=== PATIENT | male | born 1935 | race Caucasian/White ===

== ENCOUNTER 2019-05-10 10:06 | Outpatient (CLI) | payer MEDICARE, SELFPAY ==
--- NOTE | 2019-05-10 10:13 | CT_ITS ---
WS: [id number] CT ANGIOGRAPHY abdomen and pelvis. HISTORY: AAA TECHNIQUE: CT angiogram is performed during IV injection. Reformation images reviewed. All CT scans a [facility] use at least one of these dose optimization techniques: automated exposure co ntrol; mA and/or kV adjustment per patient size (includes targeted exams where dose is matched to cli nical indication); or iterative reconstruction. CONTRAST: Omnipaque 350; 95 mL IV. DLP: 919.81 mGycm COMPARISON: 05/14/2018 Emphysematous changes at the lung bases. Stable since the prior study. Cardiac chambers are enlarged but incompletely visualized. Small hiatal hernia. Abdominal aorta: Tortuosity and atherosclerotic changes throughout the aorta. Aneurysmal dilatation b egins several centimeters below the renal arteries. Aneurysm extends over length of 7 cm. Extensive c alcified plaque. There is a focal saccular component extending anteriorly with the mural thickening m easuring 10 mm in diameter. The lumen is widely patent to the bifurcation. Largest AP diameter of the aneurysm is at the level of the saccular dilatation measuring 3.6 cm. Similar in appearance to the p rior study. There is also calcification at the origin of the SMA and renal arteries. There is a short stent in the proximal RIGHT common iliac artery. Stent is patent. Calcified plaque through the external and femoral arteries as seen on the prior study. At lease 50% s tenosis involving the proximal LEFT superficial femoral artery. Stable moderate stenosis involving th e proximal RIGHT common and superficial femoral arteries. Visualized liver, spleen, gallbladder, adrenals and pancreas are negative for acute process. No mass is identified. No renal obstruction. Mild perinephric stranding around each kidney. Appendix is wendy l. Diverticulosis without diverticulitis in the sigmoid and descending colon. Mild enlargement the pr ostate gland. No free fluid or adenopathy. CT/CT angio abdomen pelvis [id number] IMPRESSION: 1. Moderate atherosclerosis abdominal aorta with stable aneurysm measuring 3.6 cm. 2. Moderate atherosclerosis of the SMA, iliac arteries and proximal femoral ar teries. Similar to prior studies. Most significant stenosis involving the proxi mal LEFT SFA of greater than 50%. 3. Short stent in the proximal RIGHT common iliac artery is patent.
[2019-05-10 10:35] LABS: Blood Urea Nitrogen 13 mg/dL (8-23)
[2019-05-10] MEDS: iohexol 350 mg/mL 100 mL Btl IV (10:43)
== END 2019-05-10 10:07 | disposition home or self-care (01) ==
LOC: RADWPI 10:12
PROVIDERS: Family Provider Nurse Practitioner; PCP Nurse Practitioner; Visit Provider Thoracic Surgery (Cardiothoracic Vascular Surgery)
DX: I71.4 Abdominal aortic aneurysm, without rupture (principal); I70.0 Atherosclerosis of aorta; K55.1 Chronic vascular disorders of intestine; I70.8 Atherosclerosis of other arteries
CPT/HCPCS: 74174; 82565; 84520; Q9967

== ENCOUNTER 2019-10-05 16:35 | Emergency (ER) | payer MEDICARE, SELFPAY ==
[2019-10-05 16:49] VITALS: BP 158/74; PULSE 84; RESP 12; TEMP 37.2; O2SAT 97; BMI 23.0
--- NOTE | 2019-10-05 17:08 | XRR_ITS ---
PROCEDURE INFORMATION: Exam: XR Abdomen, 1 View Exam date and time: 10/05/2019 5:14 PM Age: 84 years old Clinical indication: Abdominal pain; Additional info: Abdominal pain, transient sharp/grabbing pain TECHNIQUE: Imaging protocol: XR of the abdomen. Views: Frontal supine view of the abdomen. 1 View. Other technique: Frontal portable supine view of the abdomen/pelvis. COMPARISON: CR Abdomen Series Acute [id number] 01/19/2014 1:27 PM FINDINGS: Gastrointestinal tract: Unremarkable. No bowel dilation. Vasculature: Mild calcification of the left upper quadrant splanchnic vasculature is present. 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 Bilateral lower lumbar facet primary osteoarthritis. XR/XR KUB portable [id number] IMPRESSION: No acute abdominal or pelvic abnormality identified.
[2019-10-05 17:49] LABS: Basophils # 0.1 10^3/uL (0.0-0.1); Basophils % 0.8 %; Eosinophils # 0.1 10^3/uL (0.0-0.8); Eosinophils % 1.4 %; Hematocrit 39.5 % (42.0-52.0); Hemoglobin 12.7 g/dL (11.7-16.6); Lymphocytes # 2.2 10^3/uL (0.8-4.8); Lymphocytes % 30.8 %; Mean Corpuscular HGB Conc 32.2 g/dL (30.0-36.0); Mean Corpuscular Hemoglobin 30.5 pg (28.0-34.0); Mean Corpuscular Volume 94.7 fL (80-94); Mean Platelet Volume 10.7 fL (7.4-10.4); Monocytes # 0.8 10^3/uL (0.2-0.9); Monocytes % 11.4 %; Neutrophils # 3.9 10^3/uL (1.8-7.7); Neutrophils % 55.3 %; Nucleated Red Blood Cells % 0 %; Platelet Count 175 10^3/cmm (130-400); Red Blood Count 4.17 10^6/uL (4.1-5.3); Red Cell Distribution Width 12.6 % (12.1-15.1); White Blood Count 7.1 10^3/uL (4.0-10.0)
--- NOTE | 2019-10-05 18:00 | W.ED.ABDPA2 ---
HPI - Abdominal Pain General: Chief Complaint: Abdominal Pain Stated Complaint: abd pain Time Seen by Provider: 10/05/19 17:31 Source: patient Mode of arrival: ambulatory Limitations: no limitations History of Present Illness: HPI narrative: 84 yo male that states he has had constipation for the last 2 days. he stgates he has had diffuse cramping. He denies any pain currently. denies fevers. He states he has a hx of bowel issues in the past. he has not taken any stool softeners or laxatives. MD elicited complaint: abdominal pain Pertinent past history: constipation Onset (ago): day(s) Location: Diffuse Associated Symptoms: Reports constipation; Denies chills, dysuria and fever(s) Review of Systems Const: Denies: fever(s), chills, body aches or change in appetite Eyes: Denies: blurry vision or eye discomfort ENMT: Denies: throat pain or dental pain Card: Denies: chest pain Resp: Denies: dyspnea GI: Reports: abdominal pain and constipation : Denies: dysuria Musc: Denies: neck pain or back pain Skin/Breast: Denies: rash Neuro: Denies: headache(s) Psych: Denies: depression Hieu/Lymph: Denies: easy bruising All/Imm: Denies: urticaria PFSH ED PFSH: Medical History AAA (abdominal aortic aneurysm) Paroxysmal A-fib Surgical History S/P CABG (coronary artery bypass graft) Family History Other CAD (coronary artery disease) Social History Smoking and tobacco status: former smoker Alcohol intake: former Physical Exam Const: COMMON NORMALS: no acute distress, patient oriented x3 and healthy appearing HENMT: COMMON NORMALS: normocephalic and atraumatic HEAD & SCALP: normocephalic and atraumatic Eye: COMMON NORMALS: Equal, round and reactive pupils present and EOMs intact bilaterally PUPIL: Yes Equal, round and reactive pupils present Neck/C-Spine: COMMON NORMALS: full ROM and supple Chest: COMMONS NORMALS: normal inspection of the chest and normal palpation of entire chest wall Resp: COMMON NORMALS: normal respiratory effort, No retractions, No use of accessory muscles and clear to auscultation bilaterally AUSCULTATION: clear to auscultation bilaterally Cardio: COMMON NORMALS: regular rate, regular rhythm and No murmurs present (Cardio) RATE: regular rate RHYTHM: regular rhythm GI: COMMON NORMALS: Normal to inspection, nondistended, normoactive bowel sounds present, Soft to palpation, non-tender and no masses PALPATION: Yes Soft to palpation Extremity: COMMON NORMALS: normal to inspection and full ROM Neuro: COMMON NORMALS: patient oriented x3, moves all extremities and no focal motor deficits Psych: COMMON NORMALS: mental status grossly normal, Normal thought process present and cooperative THOUGHT PROCESS: Normal thought process present Skin: COMMON NORMALS: no rashes or lesions noted and no wounds GENERAL SKIN EXAM: no rashes or lesions noted Course Vital Signs: Vital signs: Vital Signs Temperature 98.9 F 10/05/19 16:49 Pulse Rate 70 10/05/19 18:27 Respiratory Rate 16 10/05/19 18:27 Blood Pressure 125/85 10/05/19 18:27 Pulse Oximetry 97 10/05/19 18:27 MDM - Abdominal Pain MDM Narrative: Medical decision making narrative: pt presents here with abdominal pain likely from constipation. I believe his pain is likely from his constipation. His abdominal exam here is benign and has no signs of acute surgical abdomen. Will prescribe him miralax and bentyl for home. he is to return if worsening. Lab Data: Labs: Lab Results 10/05/19 10/05/19 10/05/19 Range/Units 17:32 17:32 17:32 WBC 7.1 (4.0-10.0) 10^3/ uL RBC 4.17 (4.1-5.3) 10^6/u L Hgb 12.7 (11.7-16.6) g/dL Hct 39.5 L (42.0-52.0) % MCV 94.7 H (80-94) fL MCH 30.5 (28.0-34.0) pg MCHC 32.2 (30.0-36.0) g/dL RDW 12.6 (12.1-15.1) % Plt Count 175 (130-400) 10^3/c mm MPV 10.7 H (7.4-10.4) fL Neut % (Auto) 55.3 % Lymph % (Auto) 30.8 % [place] % (Auto) 11.4 % Eos % (Auto) 1.4 % Baso % (Auto) 0.8 % Neut # (Auto) 3.9 (1.8-7.7) 10^3/u L Lymph # (Auto) 2.2 (0.8-4.8) 10^3/u L [place] # (Auto) 0.8 (0.2-0.9) 10^3/u L Eos # (Auto) 0.1 (0.0-0.8) 10^3/u L Baso # (Auto) 0.1 (0.0-0.1) 10^3/u L Nucleated RBC % (a uto) 0 % Nucleated RBCs # 0.0 /100WBC Sodium 139 (136-145) mmol/L Potassium 3.8 (3.5-5.1) mmol/L Chloride 101 (98-107) mmol/L Carbon Dioxide 26 (22-29) mmol/L Anion Gap 15.8 (5-19) BUN 12 (8-23) mg/dL Creatinine 1.1 (0.7-1.2) mg/dL Glucose 96 (65-115) mg/dL Calculated Osmolal ity 284 L (285-295) mOsm/k g Lactate 0.9 (0.5-2.2) mmol/L Calcium 10.0 (8.5-10.5) mg/dL Total Bilirubin 0.6 (0.15-1.2) mg/dL AST 19 (0-40) U/L ALT 13 (0-41) U/L Alkaline Phosphata se 47 (40-130) IU/L Total Protein 7.3 (6.6-8.7) g/dL Albumin 4.4 (3.5-5.2) g/dL Globulin 2.9 (1.3-4.6) g/dL Lipase 23 (13-60) U/L Discharge Plan Discharge Patient Disposition: Home, Self-Care Clinical Impression: Abdominal pain Constipation Qualifiers: Constipation type: unspecified constipation type Qualified Code(s): K59.00 - Constipation, unspecified Condition: Stable Prescriptions: New dicyclomine 20 mg tablet 20 mg PO BID PRN (Reason: abdominal pain) Qty: 20 RF: 0 Miralax 17 gram/dose powder 17 gm PO DAILY PRN (Reason: constipation) Qty: 119 RF: 0 No Action metoprolol tartrate 50 mg tablet 50 mg PO BID RF: 0 up4 Probiotics Adult 15 billion cell capsule 1 cap PO DAILY RF: 0 pantoprazole [Protonix] 40 mg tablet,delayed release (DR/EC) 40 mg PO DAILY RF: 0 lisinopril 2.5 mg tablet 1.25 mg PO BID RF: 0 cholecalciferol (vitamin D3) 125 mcg (5,000 unit) capsule 5,000 unit PO DAILY RF: 0 aspirin 325 mg tablet 325 mg PO DAILY Qty: 90 RF: 3 Discharge Orders: Discharge Order (Routine); Ordered 10/05/19 Ordered By: Dandy Oliveira Referrals: Clarence Garcia, [employer] [Primary Care Provider] - 4-7 days Discharge Diet: Advance as tolerated Discharge Activity: Resume usual activity Patient Instructions: Constipation (ED), Abdominal Pain (ED) Discharge Date/Time: 10/05/19 18:28 Coding Level of Care Code 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
[2019-10-05 18:07] LABS: Lactate (Lactic Acid level) 0.9 mmol/L (0.5-2.2)
[2019-10-05 18:11] LABS: Alanine Aminotransferase 13 U/L (0-41); Albumin Level 4.4 g/dL (3.5-5.2); Alkaline Phosphatase 47 IU/L (40-130); Anion Gap 15.8 (5-19); Aspartate Amino Transferase 19 U/L (0-40); Blood Urea Nitrogen 12 mg/dL (8-23); Carbon Dioxide 26 mmol/L (22-29); Chloride 101 mmol/L (98-107); Globulin 2.9 g/dL (1.3-4.6); Glucose 96 mg/dL (65-115); Lipase 23 U/L (13-60); Osmolality Calculated 284 mOsm/kg (285-295); Potassium 3.8 mmol/L (3.5-5.1); Sodium 139 mmol/L (136-145); Total Bilirubin 0.6 mg/dL (0.15-1.2); Total Protein 7.3 g/dL (6.6-8.7)
[2019-10-05 18:27] VITALS: BP 125/85; PULSE 70; RESP 16; O2SAT 97
== END 2019-10-05 18:28 | disposition home or self-care (01) ==
PROVIDERS: Family Medicine; Emergency Provider Emergency Medicine; PCP Nurse Practitioner
DX: K59.00 Constipation, unspecified (principal); Z79.82 Long term (current) use of aspirin; I48.0 Paroxysmal atrial fibrillation; Z95.1 Presence of aortocoronary bypass graft; Z87.891 Personal history of nicotine dependence
CPT/HCPCS: 12345; 36415; 74018; 80053; 83605; 83690; 85025; 99281; 99283

== ENCOUNTER 2019-11-19 09:39 | Outpatient (CLI) | payer MEDICARE, SELFPAY ==
--- NOTE | 2019-11-19 10:15 | USCV_ITS ---
Nettles Hay Age: 84 Gender: M : 1935 Exam Date: 11/19/2019 09:44 Ordering Phys: Dominic Adler MD (Andy) ([facility] [place] Technologist: Layla Puri [place] [facility] [place]ication: CAROTID STENOSIS Risk Factors: EX Smoker Previous Vascular Surgery: R CEA Right Brachial BP: / Left Brachial BP: / Right Left Velocity (cm/s) Spectral Plaque Velocity (cm/s) Spectral Plaque Syst/Diast Broadening Syst/Diast Broadening 152.40/20.90 Prox CCA 113.40/ 13.50 110.30/21.80 Mid CCA 101.90/ 13.50 113.60/20.90 Distal CCA 102.50/ 18.70 110.30/22.10 Prox ICA 210.00/ 40.70 147.20/34.20 Mid ICA 138.65/ 36.45 155.40/45.10 Distal ICA 110.70/ 29.20 105.80 ECA 134.40 1.41 ICA/CCA 2.06 Antegrade Vertebral Antegrade 33.30/ 6.80 cm/s 28.00/ 8.50 cm/s Bi Subclavian Bi 90.50 217.1 0 CONCLUSIONS Right ICA stenosis <50%. Right CEA Left ICA stenosis 50-69% at the upper end of the range.. This is progressed since 2019 Moderate atheromatous plaque left carotid bulb/ICA. Normal antegrade Doppler flow noted in the right vertebral artery. Normal antegrade Doppler flow noted in the left vertebral artery. Oswaldo Talbert MD (Electronically Signed) Final Date: 19 November 2019 14:34 S
== END 2019-11-19 09:40 | disposition home or self-care (01) ==
LOC: US 09:40
PROVIDERS: PCP Nurse Practitioner; Visit Provider Thoracic Surgery (Cardiothoracic Vascular Surgery)
DX: I65.23 Occlusion and stenosis of bilateral carotid arteries (principal); I67.2 Cerebral atherosclerosis
CPT/HCPCS: 93880

== ENCOUNTER 2019-12-31 13:17 | Outpatient (CLI) | payer MEDICARE, SELFPAY ==
[2019-12-31 13:44] LABS: Blood Urea Nitrogen 14 mg/dL (8-23)
[2019-12-31] MEDS: iohexol 350 mg/mL 100 mL Btl IV (13:52)
--- NOTE | 2019-12-31 14:00 | CT_ITS ---
WS: [id number] CT ANGIOGRAM CAROTID ARTERIES HISTORY: carotid stenosis TECHNIQUE: CT angiogram is performed of the carotid arteries. During arterial injection imaging is ob tained from the skull base to the aortic arch in 1.25 mm imaging. Coronal and sagittal reformats are submitted, MIP imaging also reviewed. Additional multiplanar reformats of the carotid arteries are link bmitted. NASCET criteria utilized. All CT scans at [facility] use at least one of these d ose optimization techniques: automated exposure control; mA and/or kV adjustment per patient size (in cludes targeted exams where dose is matched to clinical indication); or iterative reconstruction. CONTRAST: Omnipaque 350; 95 mL IV. DLP: 1044.6 mGycm COMPARISON: 08/04/2017, carotid ultrasound 11/19/2019 Right carotid: Common carotid artery: Arises normally from the innominate. Scattered calcified plaque in the innomin ate and common carotid artery. No significant stenosis. Internal carotid artery: Mild circumferential intimal thickening and a few scattered calcified plaque s. No significant stenosis or progression since the prior study. Stenosis less than 50%. External carotid artery: Patent. Left carotid: Common carotid artery: Arises near the base of the innominate. Scattered calcified plaque in the comm on carotid artery. No significant stenosis in the common carotid artery. Internal carotid artery: Large amount of calcified plaque at the bifurcation. Stenosis calculated at 49%. Stenosis visually appears slightly greater than 49%. External carotid artery: Patent. Right vertebral artery: Small caliber. Nonvisualization of the transforaminal portion of the RIGHT fr om near the origin of the C3. Left vertebral artery: Calcified plaque at the origin of the LEFT vertebral artery the high-grade fanny nosis. Additional scattered plaque in the proximal vertebral artery. Similar to the prior study. Subclavian arteries: Moderate amount of calcified plaque bilaterally in the subclavian arteries. No h igh-grade stenosis. Upper thorax: Emphysematous changes. No nodules. Thyroid gland: Normal. Osseous structures: Severe degenerative changes at C5, C6 and C7. Disc space narrowing. Partial fusio n at the C5-6 disc space. 2 to 3 mm anterolisthesis of C3 and C4. Similar appearance to the prior marcela dy. CT/CT angio neck [id number] IMPRESSION: 1. LEFT proximal ICA stenosis calculated at 49%. Visually the stenosis appears slightly greater in 49%. Still less than 70%. 2. Less than 50% stenosis RIGHT ICA. No change. 3. No significant stenosis identified today in the proximal cervical LEFT comm on carotid artery as described on the prior study. There is intimal thickening and a few scattered calcified plaques but stenosis less than 50%.
== END 2019-12-31 13:18 | disposition home or self-care (01) ==
LOC: RADWPI 13:20
PROVIDERS: Family Provider Nurse Practitioner; PCP Nurse Practitioner; Visit Provider Thoracic Surgery (Cardiothoracic Vascular Surgery)
DX: I65.23 Occlusion and stenosis of bilateral carotid arteries (principal)
CPT/HCPCS: 70498; 82565; 84520; Q9967

== ENCOUNTER → 2020-01-05 13:27 | Outpatient (BNVA) | payer MEDICARE, SELFPAY | PROVIDERS: Family Provider Nurse Practitioner; PCP Nurse Practitioner; Referring Provider Dermatology; Visit Provider Dermatology | DX: L82.1 Other seborrheic keratosis (principal); L57.0 Actinic keratosis; D69.2 Other nonthrombocytopenic purpura; L81.4 Other melanin hyperpigmentation | CPT/HCPCS: 17000; 17003; 99203; 99204 ==

== ENCOUNTER 2020-06-08 10:35 | Outpatient (CLI) | payer MEDICARE, SELFPAY ==
--- NOTE | 2020-06-08 11:00 | USCV_ITS ---
Nettles Hay Age: 85 Gender: M : 1935 Exam Date: 06/08/2020 11:04 Ordering Phys: Dominic Adler MD (Andy) ([email or web address]) Technologist: Scottie Christiansen [place] [facility] [place]: AAA HISTORY: Diameter (cm) AP x Transverse x Length Velocity (cm/s) Waveform Prox Aorta: 2.37 x 2.64 x 28.10 Mid Aorta: 4.06 x 3.31 x 19.10 Distal Aorta: 2.54 x 2.81 x 29.00 Right Iliac Prox: 0.67 x 0.96 x 77.70 Left Iliac Prox: 0.44 x 0.78 x 126.40 Stent Prox Landing x x Aneurysmal Sac Max x x Lt Lat Sac Dim Rt Lat Sac Dim Stent Dist Landing x x Right Iliac Stent x x Left Iliac Stent x x Right Renal Art Left Renal Art FINDINGS: Comparison:. 03/27/18. The abdominal aortic aneurysm involves the infrarenal aorta. Maximum diameter of 4.1 cm. Mild circumferential plaque. There is no evidence of a right common iliac artery aneurysm. There is no evidence of a left common iliac artery aneurysm. CONCLUSIONS Stable infrarenal AAA of 4.[address] Loly Todd DO (Electronically Signed) Final Date: 08 June 2020 13:21 S
--- NOTE | 2020-06-08 11:45 | USCV_ITS ---
Nettles Hay Age: 85 Gender: M : 1935 Exam Date: 06/08/2020 11:20 Ordering Phys: Dominic Adler MD (Andy) ([facility] [place]) Technologist: Scottie Christiansen Exam Location: [facility] [place] Indication: STENOSIS Risk Factors: Previous Vascular Surgery: Right Brachial BP: / Left Brachial BP: / Right Left Velocity (cm/s) Spectral Plaque Velocity (cm/s) Spectral Plaque Syst/Diast Broadening Syst/Diast Broadening 139.50/20.60 Prox CCA 104.00/ 22.50 118.30/26.30 Mid CCA 116.50/ 23.30 109.10/13.10 Distal CCA 109.10/ 23.70 103.40/26.50 Prox ICA 188.00/ 41.90 119.60/36.00 Mid ICA 146.00/ 32.60 145.10/34.80 Distal ICA 111.90/ 46.60 121.30 ECA 164.30 1.23 ICA/CCA 1.61 Antegrade Vertebral Antegrade 51.90/ 9.90 cm/s 28.30/ 10.50 cm/s Tri Subclavian Bi 103.3 145.5 0 0 FINDINGS Comparison:. 11/19/19. Diffuse bilateral scattered calcified plaque and intimal thickening throughout the common carotid arteries and extending through the bifurcation. Greater plaque on the left. Mild elevation of ICA velocities, left ICA velocity not as elevated as compared to the prior exam. Bilateral antegrade vertebral arteries. CONCLUSIONS Left ICA stenosis 50-69%. Right ICA stenosis < 50%. No interval adverse change in stenosis since prior exam. Dr. Loly Todd DO (Electronically Signed) Final Date: 08 June 2020 13:15 S
== END 2020-06-08 10:36 | disposition home or self-care (01) ==
LOC: RAD 10:36
PROVIDERS: PCP Nurse Practitioner; Visit Provider Thoracic Surgery (Cardiothoracic Vascular Surgery)
DX: I71.4 Abdominal aortic aneurysm, without rupture (principal); I65.23 Occlusion and stenosis of bilateral carotid arteries
CPT/HCPCS: 76706; 93880

== ENCOUNTER → 2020-08-23 09:17 | Outpatient (BNVA) | payer MEDICARE, SELFPAY | PROVIDERS: PCP Nurse Practitioner; Visit Provider Nurse Practitioner | DX: I48.0 Paroxysmal atrial fibrillation (principal); N41.0 Acute prostatitis | CPT/HCPCS: 80053; 81000; 84443; 85025 ==

== ENCOUNTER 2020-11-20 13:53 | Outpatient (CLI) | payer MEDICARE, SELFPAY ==
--- NOTE | 2020-11-20 14:15 | USCV_ITS ---
Hay Nettles Age: 85 Gender: M : 1935 Exam Date: 11/20/2020 14:11 Ordering Phys: Jennifer Mcdonough Technologist: Mojgan Cesar Exam Location: [facility] – [place], [place] Indication: ventricular tachycardia BP: 119 / 59 HR: 70 Rhythm: Sinus Technical Quality: Adequate MEASUREMENTS (Male / Female) Normal Values 2D ECHO LV Diastolic Diameter PLAX 4.2 cm 4.2 - 5.9 / 3.9 - 5.3 cm LV Systolic Diameter PLAX 1.7 cm IVS Diastolic Thickness 1.3 cm 0.6 - 1.0 / 0.6 - 0.9 cm IVS Systolic Thickness 1.7 cm LVPW Diastolic Thickness 0.9 cm 0.6 - 1.0 / 0.6 - 0.9 cm LVPW Systolic Thickness 1.8 cm LVOT Diameter 2.0 cm LV Ejection Fraction 2D Teich 88.9 % LV Ejection Fraction MOD 2C 63.4 % LV Ejection Fraction 2C AL 62.5 % LA Diameter 4.0 cm LA Width 3.9 cm LA Height 5.3 cm RA Width 3.8 cm RA Height 5.9 cm Aorta at Sinotubular Diameter 3.0 cm DOPPLER AV Peak Velocity 221.0 cm/s LVOT Peak Velocity 104.0 cm/s AV Area Cont Eq vti 1.5 cm squared AV Area Cont Eq pk 1.5 cm squared MV Peak Velocity 162.0 cm/s MV Area PHT 4.2 cm squared Mitral E to A Ratio 9.6 MV E' Velocity 67.0 cm/s Mitral E to MV E' Ratio 16.3 Mitral E to LV E' Lateral Ratio 16.3 Mitral E to LV E' Septal Ratio 16.5 TR Peak Velocity 277.5 cm/s TR Peak Gradient 30.8 mmHg Right Atrial Pressure 3.0 mmHg Pulmonary Artery Systolic Pressu 33.8 mmHg PV Peak Velocity 84.0 cm/s RV Acceleration Time 0.1 s RV Ejection Time 0.3 s RV AcT/ET 0.2 FINDINGS Left Ventricle Normal left ventricular cavity size. Normal left ventricular wall thickness. Normal left ventricular systolic function. Left ventricular ejection fraction is estimated at 60-65 %. Rhythm precludes evaluation of diastolic function. Right Ventricle Normal right ventricular size. Mildly decreased right ventricular systolic function. Right ventricular systolic pressure 38 mmHg. Right Atrium Mildly increased right atrial size. Left Atrium Mildly increased left atrial size. Mitral Valve Moderate mitral annular calcification. Mildly thickened mitral valve. No mitral valve stenosis. Mild to moderate eccentric anteriorly directed mitral valve regurgitation. Aortic Valve Moderately thickened and calcified aortic valve. Mild aortic valve stenosis, mean gradient 9.4 mmHg, YECENIA 1.5 cm squared. Trace aortic valve regurgitation. Tricuspid Valve Structurally normal tricuspid valve. Trace to mild tricuspid valve regurgitation. Pulmonic Valve Structurally normal pulmonic valve. No pulmonary valve stenosis. Trace pulmonary valve regurgitation. Pericardium No pericardial effusion. Aorta Normal size aortic root and proximal ascending aorta. Normal- sized inferior vena cava with normal respiratory variation. CONCLUSIONS 1. Normal left ventricular cavity size. Normal left ventricular wall thickness. Normal left ventricular systolic function. Left ventricular ejection fraction is estimated at 60-65 %. 2. Normal right ventricular size. Mildly decreased right ventricular systolic function. 3. Mild pulmonary hypertension with pulmonary artery pressure estimated at 38 mmHg. 4. Mild biatrial enlargement. 5. Mild to moderate eccentric anteriorly directed mitral valve regurgitation. 6. Mild aortic valve stenosis, mean gradient 9.4 mmHg, YECENIA 1.5 cm squared. Trace aortic valve regurgitation. 7. When compared to previous echocardiogram dated 05/29/2018, there is mitral valve regurgitation now. Right ventricular systolic function seems to have mildly decreased as well. Kari Gonzalez MD (Electronically Signed) Final Date: 22 November 2020 16:51 S
== END 2020-11-20 13:54 | disposition home or self-care (01) ==
LOC: US 13:55
PROVIDERS: PCP Nurse Practitioner; Visit Provider Nurse Practitioner Family
DX: I47.2 Ventricular tachycardia (principal); I27.20 Pulmonary hypertension, unspecified; I35.0 Nonrheumatic aortic (valve) stenosis
CPT/HCPCS: 93306

== ENCOUNTER 2020-12-18 09:37 | Outpatient (CLI) | payer MEDICARE, SELFPAY ==
--- NOTE | 2020-12-18 10:15 | USCV_ITS ---
NettlesHay hicks Age: 85 Gender: M : 1935 Exam Date: 12/18/2020 10:35 Ordering Phys: Dominic Adler MD (Andy) ([facility] [place] Technologist: JOHN Exam Location: [facility] [place] Indication: STENOSIS Risk Factors: Previous Vascular Surgery: Right Brachial BP: / Left Brachial BP: / Right Left Velocity (cm/s) Spectral Plaque Velocity (cm/s) Spectral Plaque Syst/Diast Broadening Syst/Diast Broadening 146.90/22.00 Prox CCA 96.90 / 16.60 106.90/19.80 Mid CCA 83.10 / 15.50 98.10/ 15.40 Distal CCA 74.60 / 15.50 87.10/ 18.70 Prox ICA 217.70/ 36.00 152.50/39.40 Mid ICA 100.50/ 37.90 160.40/42.10 Distal ICA 93.50 / 30.05 81.60 ECA 153.80 1.43 ICA/CCA 1.21 Antegrade Vertebral Antegrade 15.80/ 6.10 cm/s 36.60/ 14.50 cm/s Tri Subclavian Bi 130.1 129.7 0 0 FINDINGS Comparison:. 06/08/20 Diffuse bilateral scattered calcified plaque and intimal thickening throughout the common carotid arteries and extending through the bifurcation. Tortuous arteries with no progression of disease. Antegrade vertebral arteries. No progression of stenosis or plaque. CONCLUSIONS Left ICA stenosis 50-69%. Based on velocity the stenosis is closer to 50%. Right ICA stenosis < 50%. No interval change in stenosis since prior exam. Dr. Loly Todd DO (Electronically Signed) Final Date: 18 December 2020 11:15 S
--- NOTE | 2020-12-18 11:00 | USCV_ITS ---
Hay Nettles Age: 85 Gender: M : 1935 Exam Date: 12/18/2020 10:20 Ordering Phys: Dominic Adler MD (Andy) ([facility] [place] Technologist: Scottie Christiansen Exam Location: [facility] [place] Indication: AAA HISTORY: Diameter (cm) AP x Transverse x Length Velocity (cm/s) Waveform Prox Aorta: 1.94 x 2.49 x 29.80 Mid Aorta: 4.08 x 3.30 x 21.20 Distal Aorta: 2.54 x 2.46 x 27.10 Right Iliac Prox: 0.80 x 1.11 x 72.80 Left Iliac Prox: 0.85 x 0.97 x 255.90 Stent Prox Landing x x Aneurysmal Sac Max x x Lt Lat Sac Dim Rt Lat Sac Dim Stent Dist Landing x x Right Iliac Stent x x Left Iliac Stent x x Right Renal Art Left Renal Art FINDINGS: Comparison:. 06/08/20 Stable 4.1cm infrarenal AAA with eccentric thrombus. There is no evidence of a right common iliac artery aneurysm. There is no evidence of a left common iliac artery aneurysm. CONCLUSIONS Stable AAA, 4.[address] Loly Todd DO (Electronically Signed) Final Date: 18 December 2020 11:11 S
== END 2020-12-18 09:38 | disposition home or self-care (01) ==
LOC: US 09:38
PROVIDERS: PCP Nurse Practitioner; Visit Provider Thoracic Surgery (Cardiothoracic Vascular Surgery)
DX: I65.23 Occlusion and stenosis of bilateral carotid arteries (principal); I71.4 Abdominal aortic aneurysm, without rupture
CPT/HCPCS: 93880; 93978

== ENCOUNTER 2021-06-12 21:08 | Inpatient (IN) | payer MEDICARE, SELFPAY ==
--- NOTE | 2021-06-12 21:09 | ECG_ITS ---
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 [id number]
--- NOTE | 2021-06-12 21:09 | XRR_ITS ---
PROCEDURE INFORMATION: Exam: XR Chest Exam date and time: 06/12/2021 9:09 PM Age: 86 years old Clinical indication: Chest pressure; Prior surgery; Surgery type: Cabg; Patient HX: C/O chest pain. ; Additional info: Cp TECHNIQUE: Imaging protocol: XR of the chest. Views: 1 view. COMPARISON: CT chest w con* [id number] 04/30/2018 1:36 PM FINDINGS: Lungs: Calcified granuloma in the left lung base. The lungs are otherwise clear. Pleural spaces: Unremarkable. No pleural effusion. No pneumothorax. Heart/Mediastinum: Mild cardiomegaly. Bones/joints: Sternotomy wires. [place] in the left humerus. Old left lateral rib fractures. XR/XR chest 1V portable [id number] IMPRESSION: No acute findings.
--- NOTE | 2021-06-12 21:13 | ED_ITS ---
HPI - Chest Pain General: Chief Complaint: Chest Pain Stated Complaint: cp Time Seen by Provider: 06/12/21 21:09 Source: patient and EMS Mode of arrival: EMS Limitations: no limitations History of Present Illness: 86-year-old male does have a history of coronary artery disease states he been having intermittent chest pain throughout the day today. States that nitroglycerin relieves his pain today it was not. Hemostasis nitro was out of date given nitro and is currently pain-free and states pain is a pressure type pain center of his chest he has had roughly 3 episodes denies any nausea or dyspnea. Associated symptoms: Deny abdominal pain, dyspnea, fever(s), nausea or vomiting Review of Systems Const: Denies: fever(s), chills, body aches or change in appetite Eyes: Denies: blurry vision or eye discomfort ENMT: Denies: throat pain or dental pain Card: Reports: chest pain Resp: Denies: dyspnea GI: Denies: abdominal pain, nausea, vomiting or diarrhea : Denies: dysuria Musc: Denies: neck pain or back pain Skin/Breast: Denies: rash Neuro: Denies: headache(s) Psych: Denies: depression Hieu/Lymph: Denies: easy bruising All/Imm: Denies: urticaria PFSH ED PFSH: Medical History AAA (abdominal aortic aneurysm) Arteriosclerotic heart disease (ASHD) Carotid stenosis Paroxysmal A-fib Surgical History History of right-sided carotid endarterectomy S/P CABG (coronary artery bypass graft) S/P cataract surgery Family History Other CAD (coronary artery disease) Social History Smoking and tobacco status: former smoker Second hand smoke exposure: No Smoking risk assessment/counseling performed?: No Alcohol intake: former Desire information about alcohol rehabilitation?: No Counseling given: No Desire information about substance/drug rehabilitation?: No Counseling given: No Adopted: No Caregiver/support person: No Lives independently: Yes Household members: spouse Housing: House Marital status: Current occupational status: retired History of recent travel: No Current gender identity: Male Physical Exam Const: COMMON NORMALS: no acute distress, patient oriented x3 and healthy appearing HENMT: COMMON NORMALS: normocephalic and atraumatic HEAD & SCALP: normocephalic and atraumatic Eye: COMMON NORMALS: Equal, round and reactive pupils present and EOMs intact bilaterally PUPIL: Yes Equal, round and reactive pupils present Neck/C-Spine: COMMON NORMALS: full ROM and supple Chest: COMMONS NORMALS: normal inspection of the chest and normal palpation of entire chest wall Resp: COMMON NORMALS: normal respiratory effort, No retractions, No use of accessory muscles and clear to auscultation bilaterally AUSCULTATION: clear to auscultation bilaterally Cardio: COMMON NORMALS: regular rate, regular rhythm and No murmurs present (Cardio) RATE: regular rate RHYTHM: regular rhythm GI: COMMON NORMALS: Normal to inspection, nondistended, normoactive bowel sounds present, Soft to palpation, non-tender and no masses PALPATION: Yes Soft to palpation Extremity: COMMON NORMALS: normal to inspection and full ROM Neuro: COMMON NORMALS: patient oriented x3, moves all extremities and no focal motor deficits Psych: COMMON NORMALS: mental status grossly normal, Normal thought process present and cooperative THOUGHT PROCESS: Normal thought process present Skin: COMMON NORMALS: no rashes or lesions noted and no wounds GENERAL SKIN EXAM: no rashes or lesions noted Course Vital Signs: Vital signs: Vital Signs Temperature 97.7 F 06/12/21 21:15 Pulse Rate 76 06/12/21 23:13 Respiratory Rate 14 06/12/21 23:13 Blood Pressure 128/58 06/12/21 23:13 Pulse Oximetry 96 06/12/21 23:13 MDM - Chest Pain Medical Decision Making Patient presents here with chest pain that since resolved since being here 2- hour troponin did have a delta of 7 be consistent with an NSTEMI spoke to hospitalist and will admit gave Jessyx we will consult cardiology as well Lab Data : 06/12/21 21:31 06/12/21 21:31 Radiology Impressions Chest X-Ray 06/12/21 21:09 IMPRESSION: No acute findings. Laboratory Results WBC 9.8 10^3/uL (4.0-10.0) 06/12/21 21:31 RBC 4.32 10^6/uL (4.1-5.3) 06/12/21 21: Hgb 13.2 g/dL (11.7-16.6) 06/12/21 21: Hct 40.8 % (42.0-52.0) L 06/12/21 21: MCV 94.4 fl (80-94) H 06/12/21 21: MCH 30.6 pg (28.0-34.0) 06/12/21 21: MCHC 32.4 g/dL (30.0-36.0) 06/12/21 21: RDW 13.2 % (12.1-15.1) 06/12/21 21: Plt Count 154 10^3/cmm (130-400) 06/12/21 21: MPV 10.4 fL (7.4-10.4) 06/12/21 21: Neut % (Auto) 72.2 % 06/12/21 21: Lymph % (Auto) 15.7 % 06/12/21 21: Ray % (Auto) 9.8 % 06/12/21 21: Eos % (Auto) 1.2 % 06/12/21 21: Baso % (Auto) 0.9 % 06/12/21 21: Neut # (Auto) 7.11 10^3/uL (1.8-7.7) 06/12/21 21: Lymph # (Auto) 1.5 10^3/uL (0.8-4.8) 06/12/21 21: Ray # (Auto) 1.0 10^3/uL (0.2-0.9) H 06/12/21 21: Eos # (Auto) 0.1 10^3/uL (0.0-0.8) 06/12/21 21: Baso # (Auto) 0.1 10^3/uL (0.0-0.1) 06/12/21 21: Nucleated RBC % (auto) 0 % 06/12/21: Nucleated RBCs # 0.0 /100WBC 06/12/21 21: Sodium 136 mmol/L (136-145) 06/12/21 21: Potassium 4.4 mmol/L (3.5-5.1) 06/12/21 21:31 Chloride 101 mmol/L (98-107) 06/12/21 21:31 Carbon Dioxide 23 mmol/L (22-29) 06/12/21 21:31 Anion Gap 16.4 (5-19) 06/12/21 21:31 BUN 11 mg/dL (8-23) 06/12/21 21:31 Creatinine 1.0 mg/dL (0.7-1.2) 06/12/21 21:31 GFR Calculation Not Reportable 06/12/21 21:31 Glucose 103 mg/dL (65-115) 06/12/21 21:31 Calculated Osmolality 282 mOsm/kg (285-295) L 06/12/21 21:31 Calcium 9.7 mg/dL (8.5-10.5) 06/12/21 21:31 Total Bilirubin 0.4 mg/dL (0.15-1.2) 06/12/21 21:31 AST 18 U/L (0-40) 06/12/21 21:31 ALT 13 U/L (0-41) 06/12/21 21:31 Alkaline Phosphatase 64 IU/L (40-130) 06/12/21 21:31 Troponin T Baseline 46 ng/L (0-15) H 06/12/21 21:31 Troponin T 120 Minute 117.2 ng/L (0-15) H 06/12/21 23:32 Delta Troponin T 71.2 ABS# (0-10) H* 06/12/21 23:32 Total Protein 6.7 g/dL (6.6-8.7) 06/12/21 21:31 Albumin 4.2 g/dL (3.5-5.2) 06/12/21 21:31 Globulin 2.5 g/dL (1.3-4.6) 06/12/21 21:31 EKG Data EKG 1: I personally reviewed and interpreted this EKG as follows: EKG interpretation date: 06/12/21 EKG interpretation time: 21:13 Interpretation: AFIB HR [address] elevation rbbb qrs 138 qtc 429 Discharge Plan Discharge Patient Disposition: Admitted As Inpatient Clinical Impression: Non-ST elevation RI (NSTEMI) Condition: Stable Prescriptions: No Action up4 Probiotics Adult 15 billion cell capsule 1 cap PO DAILY 0RF pantoprazole [Protonix] 40 mg tablet,delayed release (DR/EC) 40 mg PO DAILY 0RF cholecalciferol (vitamin D3) 125 mcg (5,000 unit) capsule 5,000 unit PO DAILY 0RF aspirin 325 mg tablet 325 mg PO DAILY Qty: 90 3RF ondansetron HCl 8 mg tablet 8 mg PO Q6H PRN (Reason: nausea and vomiting) 0RF dicyclomine 10 mg capsule 20 mg PO BID PRN (Reason: IBS) 0RF metoprolol tartrate 25 mg tablet 25 mg PO .HS Qty: 90 3RF diltiazem HCl 120 mg capsule,extended release 24 hr 120 mg PO QAM Qty: 90 3RF Referrals: Clarence Garcia, SENIOR BIOINFORMATICS SPECIALIST-C [Primary Care Provider] - Coding Level of Care Code ED Service Greeter for Chg 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
[2021-06-12 21:15] VITALS: BP 143/67; PULSE 89; RESP 18; TEMP 36.5; O2SAT 97; BMI 22.4
[2021-06-12 21:36] LABS: Basophils # 0.1 10^3/uL (0.0-0.1); Basophils % 0.9 %; Eosinophils # 0.1 10^3/uL (0.0-0.8); Eosinophils % 1.2 %; Hematocrit 40.8 % (42.0-52.0); Hemoglobin 13.2 g/dL (11.7-16.6); Lymphocytes # 1.5 10^3/uL (0.8-4.8); Lymphocytes % 15.7 %; Mean Corpuscular HGB Conc 32.4 g/dL (30.0-36.0); Mean Corpuscular Hemoglobin 30.6 pg (28.0-34.0); Mean Corpuscular Volume 94.4 fl (80-94); Mean Platelet Volume 10.4 fL (7.4-10.4); Monocytes % 9.8 %; Neutrophils # 7.11 10^3/uL (1.8-7.7); Neutrophils % 72.2 %; Nucleated Red Blood Cells % 0 %; Platelet Count 154 10^3/cmm (130-400); Red Blood Count 4.32 10^6/uL (4.1-5.3); Red Cell Distribution Width 13.2 % (12.1-15.1); White Blood Count 9.8 10^3/uL (4.0-10.0)
[2021-06-12 21:37] VITALS: BP 133/73; PULSE 86; RESP 17
[2021-06-12 21:54] LABS: Alanine Aminotransferase 13 U/L (0-41); Albumin Level 4.2 g/dL (3.5-5.2); Alkaline Phosphatase 64 IU/L (40-130); Aspartate Amino Transferase 18 U/L (0-40); Blood Urea Nitrogen 11 mg/dL (8-23); Calcium 9.7 mg/dL (8.5-10.5); Carbon Dioxide 23 mmol/L (22-29); Chloride 101 mmol/L (98-107); Globulin 2.5 g/dL (1.3-4.6); Glucose 103 mg/dL (65-115); Osmolality Calculated 282 mOsm/kg (285-295); Sodium 136 mmol/L (136-145); Total Bilirubin 0.4 mg/dL (0.15-1.2); Total Protein 6.7 g/dL (6.6-8.7)
[2021-06-12 21:55] LABS: Anion Gap 16.4 (5-19); Potassium 4.4 mmol/L (3.5-5.1); Troponin(5th) Baseline 46 ng/L (0-15)
[2021-06-12 22:12] VITALS: PULSE 78; RESP 22; O2SAT 98
--- NOTE | 2021-06-12 23:09 | ECG_ITS ---
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 Measurements Intervals [place] Rate: 82 P: TN: QRS: -75 QRSD: 143 T: 41 QT: 407 QTc: 477 Interpretive Statements ATRIAL FIBRILLATION RIGHT BUNDLE BRANCH BLOCK [120+ ms QRS DURATION, UPRIGHT V1, 40+ ms S IN I/aVL/V4/V5/V6] LEFT ANTERIOR FASCICULAR BLOCK [QRS AXIS <= -45, QR IN I, RS IN II] POSSIBLE SEPTAL MYOCARDIAL INFARCTION , PROBABLY OLD [30 ms Q WAVE IN V1/V2] Compared to ECG 06/12/2021 21:13:22 Myocardial infarct finding now present Electronically Signed On 06-13-2021 23:19:11 CARBON SETTER by Bri Galarza M.D. [id number]
[2021-06-12 23:13] VITALS: BP 128/58; PULSE 76; RESP 14; O2SAT 96
[2021-06-13] VITALS (84 sets, daily range): BP systolic 110–173; BP diastolic 55–104; PULSE 59–131; RESP 5–28; TEMP 36.6–36.8; O2SAT 84–98
[2021-06-13 00:25] LABS: Troponin 5 2HR 117.2 ng/L (0-15); Troponin 5 2HR Delta 71.2 ABS# (0-10)
[2021-06-13] MEDS: enoxaparin 80 mg/0.8 mL Syringe 70 MG SUBCUT (01:50)
--- NOTE | 2021-06-13 03:09 | ECG_ITS ---
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 Measurements Intervals [place] Rate: 74 P: [place]: QRS: -73 QRSD: 147 T: 36 QT: 429 QTc: 477 Interpretive Statements ATRIAL FIBRILLATION LEFT AXIS DEVIATION [QRS AXIS < -30] RIGHT BUNDLE BRANCH BLOCK [120+ ms QRS DURATION, UPRIGHT V1, 40+ ms S IN I/aVL/V4/V5/V6] Compared to ECG 06/13/2021 00:36:03 Left-axis deviation now present Left anterior fascicular block no longer present Myocardial infarct finding no longer present Electronically Signed On 06-13-2021 23:20:25 PARKING OFFICER by Bri Galarza M.D. [id number]
[2021-06-13 04:25] LABS: Troponin 5 6HR 226.2 ng/L (0-15); Troponin 5 6HR Delta 180.2 ng/L (0-12)
--- NOTE | 2021-06-13 06:08 | PC.NURSE ---
Patient arrived from ER around 0135. Called Dr. Quiroz at 0147 to let her know the patient was here. Spoke with Dr. Quiroz at 0431 in regards to a critical lab result of troponins 226.2 and delta 180.2; also let her know that the patient is in afib with a HR ranging 45-80ish and that I was going to hold off on the patient's metoprolol and cardizem. Per Dr. Quiroz to not give the metoprolol and cardizem at this time. Patient remained alert and oriented x4. Afib with a rate from 45-80. On room air. Voided out 550, no bowel movement. Patient has not complained of any chest pain and no shortness of breath. No further concerns at this time.
--- NOTE | 2021-06-13 06:24 | PM.HP ---
Providers/Chief Complaint Admitting Physician: Jess Quiroz MD Primary Care Provider: Clarence Garcia, CIVIL DRAFTING TECHNICIAN-C Chief Complaint: cp History of Present Illness Hay Nettles is a 86 year old male past medical history of A. fib AAA, CAD status post CABG 30 years ago presenting today with complains of chest pain that started at around 4 PM. Patient states he was sitting in his recliner when suddenly started to experience chest pain radiating into bilateral arms. Described as 7 out of 10 in intensity. Sat down to rest which relieve the pain temporarily but then pain recurred again at 6 PM as he tried to walk down 1 flight of stairs and going to his kitchen. Took 2 sublingual nitroglycerin which helped with the pain. Called EMS and presented to the emergency room. Here he was noted to have elevated troponins with 2-hour delta of 71. He has been experiencing lowering exercise capacity over the past week or so, states he had to rest multiple times for usual activities such as walking his dog, going up and down his usual flight of stairs walking to the bathroom etc. Describes being fatigued and winded earlier than usual. Denies any shortness of breath, palpitations or syncope. Review of Systems General: Reports: 10 or more systems reviewed and unremarkable except in HPI and below Const: Denies: fever(s), chills or body aches Eyes: Denies: change in vision, blurry vision or photophobia ENMT: Reports: hoarseness; Denies: throat pain, enlarged tonsils, odynophagia or nasal congestion Card: Denies: chest pain, palpitations, irregular heart rhythm, edema, swelling of feet/ankles, lightheadedness, pre-syncope, dyspnea on exertion or orthopnea Resp: Denies: dyspnea, productive cough, non-productive cough, wheezing, stridor, pain on inspiration, change in phlegm color, hemoptysis or chest congestion GI: Denies: abdominal pain, nausea, vomiting, hematemesis, coffee ground emesis, dysphagia, heartburn, diarrhea, constipation, GI cramping, change in stool character, hematochezia or melena : Denies: flank pain, dysuria, urinary frequency, urinary urgency, urinary hesitancy or hematuria Musc: Denies: neck pain, back pain, extremity pain, joint swelling, joint warmth or deformity Neuro: Denies: headache(s), numbness in extremities, weakness in extremities, sensory changes, difficulty walking, frequent falls, dizziness, vertigo, behavioral changes, Slurred speech present or seizure-like activity Psych: Denies: anxiety, depression, suicidal ideation or homicidal ideation Endo: Denies: polyuria, polydipsia, tired all the time, cold intolerance or hot flashes Hieu/Lymph: Denies: easy bruising or easy bleeding Medications/Allergies Home Medications Medication Instructions Recorded Confirmed Last Taken Type Lactobacillus 1 cap PO DAILY cap 05/20/19 04/30/21 10/05/19 History acidophil,plantar-Bifido no.7 15 billion cell capsule (up4 Probiotics Adult) pantoprazole 40 mg tablet,delayed 40 mg PO DAILY 05/20/19 04/30/21 10/05/19 History release (Protonix) aspirin 325 mg tablet 325 mg PO DAILY #90 tab 08/24/19 04/30/21 10/05/19 Rx cholecalciferol (vitamin D3) 125 5,000 unit PO DAILY cap 08/24/19 04/30/21 10/05/19 History mcg (5,000 unit) capsule dicyclomine 10 mg capsule 20 mg PO BID PRN cap 02/23/20 04/30/21 Unknown History ondansetron HCl 8 mg tablet 8 mg PO Q6H PRN tab 02/23/20 04/30/21 Unknown History diltiazem HCl 120 mg capsule,24 120 mg PO QAM #90 cap 08/15/20 04/30/21 Unknown Rx hr,extended release metoprolol tartrate 25 mg tablet 25 mg PO .HS #90 tab 08/15/20 04/30/21 Unknown Rx Allergies Allergy/AdvReac Type Severity Reaction Status Date / Time metoclopramide [From Reglan] Allergy mental Verified 04/30/21 14:49 problems nalbuphine [From Nubain] Allergy muscle Verified 04/30/21 14:49 spasms penicillin G Allergy rash Verified 04/30/21 14:49 Lyqouze-PKA-ZtN Reductase Allergy panceratiti Verified 04/30/21 14:49 Inhibitor s [Ynhjvxa-Cya-Gdb Reductase Inhibitor] diphenhydramine AdvReac Mild Spasms Verified 04/30/21 14:49 [From Benadryl] promethazine AdvReac Mild Unknown Verified 04/30/21 14:49 codiene Allergy ADR-Abdominal Uncoded 04/30/21 14:49 Pain PFSH Acute PFSH: Medical History (Updated 06/13/21 @ 06:30 by Jess Quiroz MD) AAA (abdominal aortic aneurysm) Arteriosclerotic heart disease (ASHD) Carotid stenosis H/O hemorrhoids IBS (irritable bowel syndrome) Paroxysmal A-fib Surgical History (Updated 06/13/21 @ 06:30 by Jess Quiroz MD) H/O shoulder surgery History of lung surgery History of right-sided carotid endarterectomy S/P CABG (coronary artery bypass graft) S/P cataract surgery Family History Other CAD (coronary artery disease) Social History Smoking and tobacco status: former smoker Second hand smoke exposure: No Smoking risk assessment/counseling performed?: No Alcohol intake: former Desire information about alcohol rehabilitation?: No Counseling given: No Desire information about substance/drug rehabilitation?: No Counseling given: No Adopted: No Caregiver/support person: No Lives independently: Yes Household members: spouse Housing: House Marital status: Current occupational status: retired History of recent travel: No Current gender identity: Male Vitals/I&O/Wt Last Vital Signs Temp 97.8 F 06/13/21 01:40 Pulse 65 06/13/21 05:49 Resp 18 06/13/21 05:30 BP 129/55 06/13/21 05:30 Pulse Ox 95 06/13/21 05:30 06/12/21 06/12/21 06/13/21 14:59 22:59 06:59 Output Total 550 / 550 Balance -550 / -550 Weight last 48 hrs Weight 68.946 kg Physical Exam Narrative: GEN: Awake, alert and oriented, no acute distress CVS: S1S2 N RS: CTA B/L Abd: Soft, nt/nd , bs+ 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 Currently pain is relieved after taking sublingual nitroglycerin. EKG without acute ST-T wave changes. Troponins are elevated with 2-hour delta at 71. Continue to trend EKG and troponin at 6 hours. Currently chest pain-free. Started on Lovenox 1 mg/kg every 12 hours. Aspirin 81 mg p.o. daily to continue Holding metoprolol and Cardizem home doses for now given intermittent sinus bradycardia bradycardia noted with heart rate 50s. Cardiology consult for possible cath. Patient reports last angiogram was 5 years ago. Status: Acute Attestations Medical Necessity Statement*: Greater than 2 midnight admission is anticipated in [facility] for NSTEMI. Coding Level of Care Code Acute Clinical Research Management Associate for Ilan Saab Diagnoses Non-ST elevation UT (NSTEMI) I21.4
[2021-06-13] MEDS: aspirin 81 mg EC Tablet PO (08:38)
[2021-06-13] MEDS: pantoprazole DR 40 mg Tablet PO (08:38)
--- NOTE | 2021-06-13 09:49 | USCV_ITS ---
Hay Nettles Age: 86 Gender: M : 1935 Exam Date: 06/13/2021 10:13 Ordering Phys: Bri Galarza MD ([email or web address]) Technologist: MARILUZ Exam Location: [facility] [place] Indication: chest pain BP: 150 / 68 HR: 80 Rhythm: Atrial fibrillation Technical Quality: Adequate MEASUREMENTS (Male / Female) Normal Values 2D ECHO LV Diastolic Diameter PLAX 3.6 cm 4.2 - 5.9 / 3.9 - 5.3 cm LV Systolic Diameter PLAX 3.1 cm IVS Diastolic Thickness 1.3 cm 0.6 - 1.0 / 0.6 - 0.9 cm IVS Systolic Thickness 1.9 cm LVPW Diastolic Thickness 1.3 cm 0.6 - 1.0 / 0.6 - 0.9 cm LVPW Systolic Thickness 1.2 cm LVOT Diameter 2.0 cm LV Ejection Fraction 2D Teich 26.6 % LV Ejection Fraction MOD 2C 66.3 % LV Ejection Fraction 2C AL 67.9 % LA Diameter 3.3 cm LA Width 3.4 cm LA Height 4.1 cm RA Width 3.5 cm RA Height 5.8 cm Aorta at Sinotubular Diameter 2.2 cm M-MODE Aortic Annulus Diameter 2.5 cm LA Ao Ratio MM 1.1 MV E Point Septal Separation 0.4 cm DOPPLER AV Peak Velocity 253.7 cm/s LVOT Peak Velocity 84.0 cm/s AV Area Cont Eq vti 1.0 cm squared AV Area Cont Eq pk 1.0 cm squared MV Peak Velocity 146.0 cm/s MV Area PHT 3.9 cm squared MV E' Velocity 76.0 cm/s Mitral E to MV E' Ratio 21.8 Mitral E to LV E' Lateral Ratio 24.4 Mitral E to LV E' Septal Ratio 19.8 TR Peak Velocity 302.6 cm/s TR Peak Gradient 36.6 mmHg TR Mean Velocity 239.2 cm/s TR Mean Gradient 24.6 mmHg TR Velocity Time Integral 85.7 cm TV Peak E Velocity 55.0 cm/s Right Atrial Pressure 3.0 mmHg Pulmonary Artery Systolic Pressu 39.6 mmHg PV Peak Velocity 116.0 cm/s RV Acceleration Time 0.1 s RV Ejection Time 0.3 s RV AcT/ET 0.2 FINDINGS Left Ventricle Normal left ventricular size and systolic function, EF 66 %. Grade III/IV diastolic dysfunction (restrictive filling pattern), severely elevated filling pressures. Right Ventricle The right ventricle is normal in size and function. Right Atrium Mildly increased right atrial size. Left Atrium Mildly increased left atrial size. Mitral Valve Moderate mitral annular calcification. Moderate eccentric mitral regurgitation. Possible prolapse of the posterior mitral leaflet Aortic Valve Moderate aortic valve stenosis, mean gradient 14.5 mmHg, YECENIA 1 cm squared. Peak velocity 2.6 m/s Tricuspid Valve Mild tricuspid valve regurgitation. Pulmonic Valve Pulmonic valve not well visualized. Pericardium Normal pericardium without effusion. Aorta Normal ascending aorta dimension. CONCLUSIONS Normal left ventricular size and systolic function, EF 66 %. Grade III/IV diastolic dysfunction (restrictive filling pattern), severely elevated filling pressures. Mild biatrial enlargement . Moderate mitral annular calcification. Moderate eccentric mitral regurgitation. Possible prolapse of the posterior mitral leaflet Moderate aortic valve stenosis, mean gradient 14.5 mmHg, YECENIA 1 cm squared. Peak velocity 2.6 m/s. There is no pericardial effusion. There are no intracardiac masses. Estimated pulmonary artery peak systolic pressure of 40 mmHg Compared to the study from 11/20/2020, there is some worsening of the aortic valve stenosis. Dr Bri Galarza MD FACC (Electronically Signed) Final Date: 13 June 2021 12:39 S
--- NOTE | 2021-06-13 09:56 | PC.CHAP ---
Pastoral Care Encounter/Spiritual Assessment Type of Contact [] Declined patient safety officer visit [] Patient/Family/Request visit [] Outpatient visit [] Follow-up visit [] Physician referral [] Code/Alert [x] Routine visit [] Staff referral [] Actively dying [] Patient sleeping [] Family support [] [] Out of room [] Palliative care [] [] Receiving care in room [] Pre-surgical visit [] Trauma [] Long length of stay [x] ICU visit [x] Other: patient presently resting well.. prayed outsdie room Relational/Emotional Strength [] Patient feels connected with others/family/visitors/staff [] Distress [] Loneliness/isolation [] Abandonment Spirituality of Patient [] Person of Deirdre [] Attends Confucianist of their Deirdre [] Believes in Prayer [] Reads Bible or Yazdanism materials [] There are Spiritual issues to be addressed Bakery Worker Conveyor Line Interventions [x] Prayer [x] Active listening [x] Non-anxious presence [x] Spiritual/emotional support [] Crisis/trauma care [] Spiritual counseling [] Bereavement support [] Provided bereavement packet [] Provided Bible/devotional materials [] Provided toy/stuffed animal, coloring book to patient or family member [] Provided Communion [] Anointing/[place] [] Salvation [x] Completed spiritual assessment [] Other: Impact on Illness or Injury [] Angry [] Fearful [] Anxious [] Often cries [] Exhaustion [] Unable to work [] Unable to attend islam [] Unable to walk/stand [] Unable to read [] Unable to drive [] Unable to eat/drink [] Unable to sleep [] Unable to be with family [] Patient intubated [] Other: Summary Time spent with patient
--- NOTE | 2021-06-13 10:00 | P.CONIM_ITS ---
Providers/Reason For Consult Consulting Physician/Specialty*: DEBI Galarza MD/cardiology Reason for Consult*: Patient with history of coronary disease, status post coronary bypass surgery, presently with prolonged episodes of chest pain. Elevated troponin T. Requesting Physician: Dr. Quiroz Attending Physician: Jess Quiroz MD Primary Care Provider: Clarence Garcia, CERTIFICATION ENGINEER-C History of Present Illness History of Present Illness Hay Nettles is a 86 year old male with a history of coronary disease, status post four-vessel coronary bypass surgery, approximately 30 years ago, he is present with complaints of prolonged episodes of chest pain. This patient apparently has been in his baseline state of health up until 4:00 yesterday evening when he started having chest pain while being at home. He had the pain in the mid substernal area, radiating across the chest associated with some shortness of breath. The intensity of the pain was around 7/10. It very lasted for 45 minutes or so and then gradually subsided. An hour or so later, he started having the pain again. This time the pain was a little more intense. He took a total of 2 sublingual nitro. The pain had some improvement. Because of the persistence, he called the EMS. As EMS arrived, he was given another sublingual nitro and aspirin to chew. Following this, the pain started subsiding almost completely. By the time he came to the emergency room, he was mostly pain-free. His initial troponin T was elevated. The 2-hour delta was 70 and a 6-hour delta was 180. According the patient, he did not have any coronary intervention since his coronary bypass surgery, approximately 30 years ago. He had a cardiac catheterization 4 years ago or so by Dr. Trujillo. At that time apparently no intervention was done. This patient is also known to have carotid artery disease and had carotid endarterectomy on the right side. He has an abdominal aortic aneurysm. The most recent aneurysm dimension was 4.1. He is known to have aortic valve stenosis. He also has history of intermittent atrial fibrillation. Because of his easy bruising and some history of GI bleed, he is not on any oral anticoagulation. He has no history for CVA. He is known to have peripheral artery disease and had peripheral artery intervention on both sides. Review of Systems General: Reports: 10 or more systems reviewed and unremarkable except in HPI and below Const: Denies: fever(s), chills or body aches Eyes: Denies: change in vision, blurry vision or photophobia ENMT: Reports: hoarseness; Denies: throat pain, enlarged tonsils, odynophagia or nasal congestion Card: Reports: chest pain, palpitations and dyspnea on exertion; Denies: irregular heart rhythm, edema, swelling of feet/ankles, lightheadedness, pre-syncope or orthopnea Resp: Denies: dyspnea, productive cough, non-productive cough, wheezing, stridor, pain on inspiration, change in phlegm color, hemoptysis or chest congestion GI: Reports: abdominal pain and heartburn; Denies: nausea, vomiting, hematemesis, coffee ground emesis, dysphagia, diarrhea, constipation, GI cramping, change in stool character, hematochezia or melena : Denies: flank pain, dysuria, urinary frequency, urinary urgency, urinary hesitancy or hematuria Musc: Denies: neck pain, back pain, extremity pain, joint swelling, joint warmth or deformity Neuro: Denies: headache(s), numbness in extremities, weakness in extremities, sensory changes, difficulty walking, frequent falls, dizziness, vertigo, behavioral changes, Slurred speech present or seizure-like activity Psych: Denies: anxiety, depression, suicidal ideation or homicidal ideation Endo: Denies: polyuria, polydipsia, tired all the time, cold intolerance or hot flashes Hieu/Lymph: Denies: easy bruising or easy bleeding Medications/Allergies Home Medications Medication Instructions Recorded Confirmed Last Taken Type Lactobacillus 1 cap PO DAILY cap 05/20/19 04/30/21 10/05/19 History acidophil,plantar-Bifido no.7 15 billion cell capsule (up4 Probiotics Adult) pantoprazole 40 mg tablet,delayed 40 mg PO DAILY 05/20/19 04/30/21 10/05/19 History release (Protonix) aspirin 325 mg tablet 325 mg PO DAILY #90 tab 08/24/19 04/30/21 10/05/19 Rx cholecalciferol (vitamin D3) 125 5,000 unit PO DAILY cap 08/24/19 04/30/21 10/05/19 History mcg (5,000 unit) capsule dicyclomine 10 mg capsule 20 mg PO BID PRN cap 02/23/20 04/30/21 Unknown History ondansetron HCl 8 mg tablet 8 mg PO Q6H PRN tab 02/23/20 04/30/21 Unknown History diltiazem HCl 120 mg capsule,24 120 mg PO QAM #90 cap 08/15/20 04/30/21 Unknown Rx hr,extended release metoprolol tartrate 25 mg tablet 25 mg PO .HS #90 tab 08/15/20 04/30/21 Unknown Rx Allergies Allergy/AdvReac Type Severity Reaction Status Date / Time metoclopramide [From Reglan] Allergy mental Verified 04/30/21 14:49 problems nalbuphine [From Nubain] Allergy muscle Verified 04/30/21 14:49 spasms penicillin G Allergy rash Verified 04/30/21 14:49 Qvrdhle-ZSR-FkD Reductase Allergy panceratiti Verified 04/30/21 14:49 Inhibitor s [Cugucmr-Zga-Cuz Reductase Inhibitor] diphenhydramine AdvReac Mild Spasms Verified 04/30/21 14:49 [From Benadryl] promethazine AdvReac Mild Unknown Verified 04/30/21 14:49 codiene Allergy ADR-Abdominal Uncoded 04/30/21 14:49 Pain Current Medications Generic Name Dose Route Start Last Admin Trade Name Freq PRN Reason Stop Dose Admin Aspirin 81 mg 06/13/21 09:00 06/13/21 08:38 Aspirin 81 Mg Ec Tablet PO 81 mg DAILY ROMEO Administration Diltiazem HCl 120 mg 06/13/21 06:00 06/13/21 05:14 Diltiazem Er (24hr) 120 Mg Capsule PO Not Given QAM ROMEO Pantoprazole Sodium 40 mg 06/13/21 09:00 06/13/21 08:[address] 40 Mg Tablet PO 40 mg DAILY ROMEO Administration PFSH Acute PFSH: Medical History AAA (abdominal aortic aneurysm) Arteriosclerotic heart disease (ASHD) Carotid stenosis H/O hemorrhoids IBS (irritable bowel syndrome) Paroxysmal A-fib Surgical History H/O shoulder surgery History of lung surgery History of right-sided carotid endarterectomy S/P CABG (coronary artery bypass graft) S/P cataract surgery Family History Other CAD (coronary artery disease) Social History Smoking and tobacco status: former smoker Second hand smoke exposure: No Smoking risk assessment/counseling performed?: No Alcohol intake: former Desire information about alcohol rehabilitation?: No Counseling given: No Desire information about substance/drug rehabilitation?: No Counseling given: No Adopted: No Caregiver/support person: No Lives independently: Yes Household members: spouse Housing: House Marital status: Current occupational status: retired History of recent travel: No Current gender identity: Male Vitals/I&O/Wt Last Vital Signs Temp 97.8 F 06/13/21 01:40 Pulse 89 06/13/21 08:00 Resp 11 L 06/13/21 08:00 BP 144/78 06/13/21 08:00 Pulse Ox 98 06/13/21 08:00 06/12/21 06/13/21 06/13/21 22:59 06:59 14:59 Intake Total 0 / 0 Output Total 550 / 550 400 / 400 Balance -550 / -550 -400 / -400 Weight last 48 hrs Weight 152 lb Physical Exam Narrative: GENERAL: The patient is alert and oriented times three. Not in any acute distress. HEENT: No significant pallor, icterus or lymphadenopathy. The pupils are reactant to light. Oral cavity: There are no mucous membrane lesions. Funduscopic examination: Fundus is not visualized NECK: Trachea appears to be central. No masses noted. No JVD or thyromegaly appreciated. Carotid bruit on the left side. RESPIRATORY: Chest is symmetrical. No intercostals muscle retraction or any accessory muscle activation. There is no chest wall tenderness. Breath sounds are heard bilaterally. No rales or rhonchi heard. No evidence of any conso lidation. BREASTS: Deferred. HEART: The PMI is in the 5th left intercostals space just inside the mi dclavicular line. No palpable precordial events. S1 and S2 are normal. No S3 or S4 heard. No pericardial rub or any click heard. Ejection systolic murmur of grade 3 or 6 in the aortic area. No diastolic murmurs. No pericardial rub ABDOMEN: No vessel pulsations or distention. No tenderness. No organomegaly appreciated. No abdominal bruit. Bowel sounds are normally heard. Prominent aortic pulsation. : Deferred. RECTAL: Deferred. LYMPHATIC: No lymphadenopathy noted in the neck or groin. EXTREMITIES: No edema or cyanosis. No clubbing. The peripheral pulses are weak bilaterally. MUSCULOSKELETAL: No acute joint deformities or swelling SKIN: There are no significant scars or skin rash noted. NEUROPSYCHIATRIC: The patient is alert and oriented x3. Appears to be in a good mood. The higher functions are grossly within normal limits. No tremors or rigidity noted. Data : 06/12/21 21:06/12/21 21: Other Labs: Laboratory Last Values WBC 9.8 10^3/uL (4.0-10.0) 06/12/21 21: RBC 4.32 10^6/uL (4.1-5.3) 06/12/21 21: Hgb 13.2 g/dL (11.7-16.6) 06/12/21 21: Hct 40.8 % (42.0-52.0) L 06/12/21 21: MCV 94.4 fl (80-94) H 06/12/21 21: MCH 30.6 pg (28.0-34.0) 06/12/21 21: MCHC 32.4 g/dL (30.0-36.0) 06/12/21 21: RDW 13.2 % (12.1-15.1) 06/12/21 21: Plt Count 154 10^3/cmm (130-400) 06/12/21 21: MPV 10.4 fL (7.4-10.4) 06/12/21 21: Neut % (Auto) 72.2 % 06/12/21 21: Lymph % (Auto) 15.7 % 06/12/21 21: [place] % (Auto) 9.8 % 06/12/21 21: Eos % (Auto) 1.2 % 06/12/21 21: Baso % (Auto) 0.9 % 06/12/21 21: Neut # (Auto) 7.11 10^3/uL (1.8-7.7) 06/12/21 21:31 Lymph # (Auto) 1.5 10^3/uL (0.8-4.8) 06/12/21 21:31 [place] # (Auto) 1.0 10^3/uL (0.2-0.9) H 06/12/21 21:31 Eos # (Auto) 0.1 10^3/uL (0.0-0.8) 06/12/21 21:31 Baso # (Auto) 0.1 10^3/uL (0.0-0.1) 06/12/21 21:31 Nucleated RBC % (auto) 0 % 06/12/21 21:31 Nucleated RBCs # 0.0 /100WBC 06/12/21 21:31 Sodium 136 mmol/L (136-145) 06/12/21 21: Potassium 4.4 mmol/L (3.5-5.1) 06/12/21 21: Chloride 101 mmol/L (98-107) 06/12/21 21: Carbon Dioxide 23 mmol/L (22-29) 06/12/21 21:31 Anion Gap 16.4 (5-19) 06/12/21 21:31 BUN 11 mg/dL (8-23) 06/12/21 21:31 Creatinine 1.0 mg/dL (0.7-1.2) 06/12/21 21:31 GFR Calculation Not Reportable 06/12/21 21: Glucose 103 mg/dL (65-115) 06/12/21 21:31 Calculated Osmolality 282 mOsm/kg (285-295) L 06/12/21 21: Calcium 9.7 mg/dL (8.5-10.5) 06/12/21 21:31 Total Bilirubin 0.4 mg/dL (0.15-1.2) 06/12/21 21:31 AST 18 U/L (0-40) 06/12/21 21:31 ALT 13 U/L (0-41) 06/12/21 21:31 Alkaline Phosphatase 64 IU/L (40-130) 06/12/21 21:31 Troponin T Baseline 46 ng/L (0-15) H 06/12/21 21:31 Troponin T 120 Minute 117.2 ng/L (0-15) H 06/12/21 23:32 Delta Troponin T 71.2 ABS# (0-10) H* 06/12/21 23:32 Troponin T Hi Sens 6Hr 226.2 ng/L (0-15) H 06/13/21 02:54 Troponin T Hi Sens 6Hr Delta 180.2 ng/L (0-12) H* 06/13/21 02:54 Total Protein 6.7 g/dL (6.6-8.7) 06/12/21 21:31 Albumin 4.2 g/dL (3.5-5.2) 06/12/21 21:31 Globulin 2.5 g/dL (1.3-4.6) 06/12/21 21:31 Other Imaging: My impression: The EKG from 06/13/2021 revealed Atrial fibrillation with a ventricular rate of 74 bpm. Right bundle branch block pattern. Some nonspecific T wave changes. date of Service: 12/18/20 Procedure(s): CV duplex aorta [id number] ?CONCLUSIONS ?Stable AAA, 4.1 cm. ?Dr. Loly Todd DO ? (Electronically Signed) Date of Service: 12/18/20 Procedure(s): CV carotid duplex BI* [id number] ?CONCLUSIONS ?Left ICA stenosis 50-69%. Based on velocity the stenosis is closer to 50%. ?Right ICA stenosis < 50%. ?No interval change in stenosis since prior exam. ?Dr. Loly Todd DO ? (Electronically Signed) Date of Service: 06/08/20 Procedure(s): CV abd aorta aneury scrn [id number] ?CONCLUSIONS ?Stable infrarenal AAA of 4.1 cm. ?Dr. Loly Todd DO ? (Electronically Signed) Date of Service: 12/31/19 Procedure(s): CT angio neck [id number] IMPRESSION: 1.? LEFT proximal ICA stenosis calculated at 49%. Visually the stenosis appears slightly greater in 49%. Still less than 70%. 2.? Less than 50% stenosis RIGHT ICA. No change. 3.? No significant stenosis identified today in the proximal cervical LEFT common carotid artery as described on the prior study. There is intimal thickening and a few scattered calcified plaques but stenosis less than 50%. Dictated By:Loly Todd DO A&P Assessment and plan (1) Non-ST elevation AR (NSTEMI): Patient is a clinical features are consistent with an acute coronary syndrome/non-ST elevation myocardial infarction. Currently he is stable hemodynamically. No chest pain. Echocardiogram with normal LV size ejection fraction. No segmental wall motion of normalities. Patient may be treated with subcu Lovenox, aspirin, Plavix, beta-zhao and your current medications. Status: Acute (2) S/P CABG (coronary artery bypass graft): He had a cardiac catheterization in 2014. At that time, he was found to have patent MACIAS to the LAD, venous graft to the obtuse marginal artery and the distal right coronary artery. The saphenous venous graft to the diagonal artery was found to be totally occluded at the proximal anastomotic site. Possibility of progression of disease in the [employer] vessel versus graft occlusion are considerations. Status: Acute (3) Intermittent atrial fibrillation: Patient had some bradycardic episodes last night. For that reason, the metoprolol and Cardizem were held. This morning the ventricular rate is in the normal range with occasional rapid ventricular rate. It may appropriate to restart the patient on the metoprolol 25 mg p.o. twice daily. Cardizem may be held at this point. Status: Acute (4) AAA (abdominal aortic aneurysm): The aneurysm size is 4.1 cm by duplex lamination on 2020. May continue the current measures. Status: Acute Qualifiers: Presence of rupture: without rupture Qualified Code(s): I71.4 - Abdominal aortic aneurysm, without rupture (5) Carotid stenosis: The latest Doppler examination on 12/18/2020 revealed 50 to 69% stenosis on the left side and less than 50% stenosis on the right side. We will continue on the current monitoring and management. Status: Acute Plan Patient may benefit from a repeat cardiac catheterization, to reevaluate the coronary arteries as well as the graft vessels. Based on the results, further recommendations will be made. Patient may start on Plavix 60 mg p.o. now followed by 75 mg daily from tomorrow onwards. Currently on the Lovenox, metoprolol, aspirin and statin as mentioned above. Thank you for the opportunity to eval this patient make these recommendations Consult Attestations Medical Necessity Statement: Patient requires continued hospital stay for close monitoring and further management Coding Level of Care Code Acute Flight Data Technician for Estrellita Fwd History Detailed Exam Detailed Medical Decision Making High Complexity Diagnoses Intermittent atrial fibrillation I48.0 AAA (abdominal aortic aneurysm) I71.4 Presence of rupture: without rupture Carotid stenosis I65.29 Non-ST elevation AR (NSTEMI) I21.4 S/P CABG (coronary artery bypass graft) Z95.1
--- NOTE | 2021-06-13 10:23 | PC.NURSE ---
Bedside report given to BORIS Reveles, at this time.
[2021-06-13] MEDS: clopidogrel 300 mg Tablet 600 MG PO (10:30)
[2021-06-13] MEDS: metoprolol tartrate 25 mg Tablet PO ×2 (10:30→22:54)
--- NOTE | 2021-06-13 11:20 | PC.NURSE ---
Patient taken to [facility] 111-1 via bed by BORIS Reveles. Belongings at bedside. Daughter called and notified.
[2021-06-13] MEDS: dextrose 5%-sod chloride 0.45% 1,000 ML 100 ML IV (12:59)
[2021-06-13] MEDS: enoxaparin 60 mg/0.6 mL Syringe SUBCUT (13:05)
[2021-06-13] MEDS: sodium chloride 0.9% 1,000 ML 50 ML IV (13:41)
[2021-06-13] MEDS: diphenhydrAMINE 50 mg Capsule PO (13:42)
--- NOTE | 2021-06-13 16:00 | XACV_ITS ---
Exam Room: [facility] Ht: 175 cm Wt: 69 kg BSA: 1.83 m2 Gender: Male : 1935 Any Known Allergies: Other Exam Priority: Routine Procedure(s): Procedure Description: Diagnostic procedure Procedure Description: Venous Graft Catheterization Procedure Description: MACIAS Graft Catheterization Procedure Description: Coronary Angiography Geovanni GREEN; Diagnostic Cath Status: Urgent Diagnostic Findings * The left main is a medium caliber vessel with a moderate diffuse disease. * The left anterior descending artery was found to have a high-grade lesion at the ostium. Moderate diffuse disease was noted of the proximal and the mid segment of the artery. Competitive flow was noted in the distal segment of the artery. Bridging collaterals were noted to the diagonal branch of the intermedius branches. . * The left circumflex artery appears to be totally occluded proximally. * The right coronary artery is totally occluded at the ostium. * The saphenous venous graft to the diagonal and obtuse marginal arteries were found to be totally occluded. * The vein and graft to the distal RCA was found to be patent with a high-grade lesion at the distal anastomotic site. The PDA branch was found to have moderate diffuse disease. The PLV branch of the right coronary artery was found to have a small aneurysmal dilatation distally. High-grade lesions were noted proximal and distal to the aneurysmal site. Conclusions 1. This is an 86-year-old white male with history of coronary disease, status post four-vessel coronary bypass surgery approximately 30 years ago, is now presenting with the features of a non-ST elevation myocardial infarction. The 6-hour troponin she was found to have a delta of around 20. Patient underwent coronary angiogram and graft angiogram. The findings are as follows.. 2. Moderate disease in the left main. High-grade ostial narrowing in the left anterior descending artery. The diagonal artery was found to have bridging collaterals from a small intermedius artery. Total occlusion of the proximal circumflex artery. The right coronary artery is totally occluded at the ostium.. 3. The saphenous venous graft to the obtuse marginal artery and the diagonal artery were found to be occluded. The MACIAS to the LAD was found to be patent with a high-grade lesion at the distal anastomotic site. The saphenous venous graft to the distal RCA also was found to be patent with a high-grade around 95% lesion at the distal anastomotic site with some filling defects. The PLV branch was found to have a high-grade lesion distally with some aneurysmal segment. PDA was found to have moderate diffuse disease.. Recommendations * Based on the above angiogram findings, patient may benefit from intervention of the lesions at the anastomotic sites of the saphenous venous graft and the MACIAS. But this is going to be acomplex intervention and has technical challenges. Dr. Ackerman was willing to do this procedure in the morning with hemodynamic support. But patient and the family would like to have it done in a facility with the more support for complex coronary intervention. So we will make the arrangements to have it done possibly at the [facility].. Interventional RX Recommendation: PCI w/o planned CABG Diagnostic RX Recommendation: PCI w/o planned CABG Left Ventriculography Findings: * LV gram was not performed. Pressures Phase:Rest AO : 111 / 52 ( 74 ) @ 5:56:00 PM Clinical Evaluation EBL: 5mL-10mL Procedural Details Procedure Consent Obtained. Pre-Procedure Time Out. Identified patient by full name and date of as verbalized by the patient/guarantor. Does the consent match the physician's order: Yes. Accurate & Complete Informed Consent: Yes. Inpatient/Outpatient History & Physical on Chart: Yes. If H&P is completed, is and addenduem needed: No; If yes, is the addendum complete: N/A. Visualize and Verify Site with Patient/Guarantor: N/A. Relevant Radiology Images available: N/A. Pre-op teaching completed and patient verbalized understanding. The risks, benefits, and alternatives of sedation and/or procedure were discussed by physician. The patient agrees to continue. Physician notified. Baseline sample Acquired. HR: 118 BPM. Procedure started. [facility] Clinical Fraility Score: 4: Vulnerable. Fruit Buying Grader Indications: ACS <= 24 hours. Chest Pain Symptom Assessment: Typical Angina Symptoms. Cardiovascular Instability: No. Correct patient, site and procedure confirmed by cath team. PERRLA. Strong, equal hand thread inspector bilaterally. Lungs clear x 5 lobes. IV Site on Arrival: 20 gauge in the right wrist. IV Site on Arrival: 20 gauge in the left wrist. IV Fluids: 0.9% NaCl at KVO. 0 mL infused prior to systems testing laboratory technician. Oxygen started at 2liters/min via nasal canula. bilateral groins was prepped with chloroprep then draped in the usual sterile fashion. Equipment: 6F - Femoral. Cardiac Cath Pack. [employer] Manifold Kit Model BT 2000. Heparinized Saline (2 units/mL), 1000 mL bag. Kit, Micropuncture. Physician arrived. Physician scrubbed in. Immediate Pre-Procedure Time Out. Correct Patient: Yes; Correct Procedure: Yes; Correct Site: Yes; Correct Patient Position: Yes; Correct Supplies: Yes; Dried Flammable Prep: Yes; Blood Products Available: N/A;. Lidocaine 1% infiltrated to the right groin. Arterial access obtained with micropuncture set. A 5 andorran JL4 catheter in over wire. Catheter out. A 5 andorran JR4 catheter in over wire. Multiple views taken of left coronary artery. [place] RCA occluded. SVG to OM occluded. SVG to Diaganol occluded. Catheter redirected to the MACIAS. MACIAS to LAD visualized. Catheter out. A 5 andorran RCB catheter in over wire. SVG's to RCA visualized and patent. Catheter out. A 5 andorran Angled Pig catheter in over wire. Catheter out. Physician scrubbed out. A Suture was successful obtaining hemostatsis at the Right Femoral artery insertion site. Sheath(s) sutured into position with 2-0 silk and sterile 4x4's and Op-site applied over the site. No oozing or signs and symptoms of hematoma noted. Arterial sheath flushed and connected to tranducer and pressure bag with heparinized saline. Post Procedure: Pulses reassessed and unchanged. PERRLA. Strong, equal hand thread inspector bilaterally. No VTE prophylaxis required. Medication's Wasted: Lidocaine 1% = 8 mL. Medication's Wasted: Heparin = 4000 units. Total IV fluids: 78 mL. Contrast type used: Visipaque 320 mgI/mL, 500 mL bottle. Complications: none. Post-op diagnosis: severe 3 vessel disease. Estimated blood loss: 5mL-10mL. Responsiveness - Normal response to verbal stimuli; alert and oriented, PERRLA. Airway - Unaffected, no intervention required; spontaneous ventilation. Circulation: W/N/L, pulses unchanged. Nausea/Vomiting: No. Procedure completed. Patient transferred by bed to 1st floor. Vital chart was stopped. Access Site Site: Right Femoral artery Sheath Size: 5 Fr Hemostasis Method: Suture Hemostasis Success: Successful Procedure Medications Start: 4:36 PM Stop: 4:36 PM Medication: Versed Amount: 1 mg Route: I.V. Start: 4:36 PM Stop: 4:36 PM Medication: Fentanyl Amount: 50 mcg Start: 4:40 PM Stop: 4:40 PM Medication: Solu-Medrol (methylprednisolone) Amount: 125 mg Route: I.V. Start: 4:46 PM Stop: 4:46 PM Medication: Versed Amount: 1 mg Route: I.V. Start: 4:57 PM Stop: 4:57 PM Medication: Fentanyl Amount: 50 mcg I, the attending physician, have reviewed and verified all procedure medications. Yes, all medications given per verbal order History/Risk Factors Hypertension: No Dyslipidemia: No Peripheral Arterial Disease (PAD): No Myocardial Infarction (OR): No Obesity: No Renal Disease: No Tobacco Use: Former Prior Interventions PCI: No CABG: Yes Valve Surgery: No Report Signatures Finalized by Dr Bri Galarza MD [facility] on 06/13/2021 07:04 PM
--- NOTE | 2021-06-13 16:18 | PC.NURSE ---
1615 Pt taken to mechanical laboratory technician via staff
--- NOTE | 2021-06-13 16:38 | W.PM.OPSUD ---
Surgery/Procedure H&P Update DATE OF PROCEDURE: June 13, 2021 DATE H&P PERFORMED: 06/13/21 CHANGES TO PREVIOUS DOCUMENTATION: None PRIMARY INDICATION FOR PROCEDURE: NSTEMI PLANNED PROCEDURE: [facility] with coronary i and possible PCI PHYSICAL EXAM: alert, oriented x 3, clear to auscultation bilaterally and regular rate & rhythm (irregular) AIRWAY EVAL/ANESTHESIA PLAN: normal airway, see other exam findings, ASA III, Monitored Anesthesia, Local Anesthesia, Risks, benefits & alternatives of sedation and/or procedure discussed and Patient agrees to continue as planned
--- NOTE | 2021-06-13 16:46 | PC.NURSE ---
On arrival to the track laborer the patient's legs were noted to be jumping. This nurse questioned the patient about this and he stated that he had been given Benadryl earlier and that he was allergic to it. He states that it causes his legs to spasm and jump all over. Dr. Galarza was notified in person in the track laborer. Orders were received to give Solumedrol 125mg IVP. That was administered by this nurse at 1640. Will continue to monitor the patient for further reaction during his procedure and report to the receiving nurse on CSU after the procedure. Also, the allergy was changed from a mild adverse reaction to a severe allergic reaction in the patient's summary.
--- NOTE | 2021-06-13 17:51 | PC.NURSE ---
Pt returned from tender labor. MD and daughter at bedside. Pt refers to be transferred to [place] for tx. VSS. R groin site dressing c/d/i with 5fr sheath still in place. Pt educated to keep R leg straight. Sheath to be pulled at 2100 tonight per MD order. Will monitor
--- NOTE | 2021-06-13 18:59 | PC.NURSE ---
Report given to Maikel ESCALANTE
--- NOTE | 2021-06-13 19:30 | PM.TDS ---
Transfer Summary Providers Date of Admission: 06/13/21 00:26 Date of Discharge/Transfer: 06/13/21 Attending Provider at Admission: Jess Quiroz MD Attending Provider at Transfer: Jess Quiroz MD Primary Care Provider: GILMER Lemons Transfer Plans: Anticipated date of transfer: 06/13/21. Diagnoses at Discharge Discharge Diagnosis (1) Non-ST elevation MT (NSTEMI): Status: Acute (2) S/P CABG (coronary artery bypass graft): Status: Acute (3) Intermittent atrial fibrillation: Status: Acute (4) AAA (abdominal aortic aneurysm): Status: Acute Qualifiers: Presence of rupture: without rupture Qualified Code(s): I71.4 - Abdominal aortic aneurysm, without rupture (5) Carotid stenosis: Status: Acute Reason for Visit Reason for Visit cp Hospital Course Hospital Course Hay Nettles is a 86 year old male with a history of coronary disease, status post four-vessel coronary bypass surgery, approximately 30 years ago, he is present with complaints of prolonged episodes of complaint of chest pain, he was diagnosed with NSTEMI, Dr. Galarza evaluated him and recommended coronary angiogram. Cath report is pending however I was told that he has multiple occlusion of his previous grafts and he will need high risk intervention after implantation of Impella device. Family had decided to get it done at [place]. Dr. Galarza has coordinated his transfer, Dr. Antoine has accepted his case. For further details please see Dr. Ackerman's cardiac cath report and Dr. Galarza's recommendation Physical Exam Narrative: Patient was resting comfortably No active chest pain Status post cath Variable S1-S2 Nonfocal neuro exam Nonlabored breathing Saturating well on room air TS Data Studies Completed and Pending Pending at discharge Category Date Time Status Complete Blood Count w/Auto AM LABS Lab 06/14/21 04:00 Ordered Comprehensive Metabolic Panel AM LABS Lab 06/14/21 04:00 Ordered Labs from last 24 hours 06/13/21 06/12/21 06/12/21 02:54 23:32 21:31 WBC RBC Hgb Hct MCV MCH MCHC RDW Plt Count MPV Neut % (Auto) Lymph % (Auto) [place] % (Auto) Eos % (Auto) Baso % (Auto) Neut # (Auto) Lymph # (Auto) [place] # (Auto) Eos # (Auto) Baso # (Auto) Nucleated RBC % (auto) Nucleated RBCs # Sodium Potassium Chloride Carbon Dioxide Anion Gap BUN Creatinine GFR Calculation Glucose Calculated Osmolality Calcium Total Bilirubin AST ALT Alkaline Phosphatase Troponin T Baseline 46 H Troponin T 120 Minute 117.2 H Delta Troponin T 71.2 H* Troponin T Hi Sens 6Hr 226.2 H Troponin T Hi Sens 6Hr Delta 180.2 H* Total Protein Albumin Globulin 06/12/21 06/12/21 21:31 21:31 WBC 9.8 RBC 4.32 Hgb 13.2 Hct 40.8 L MCV 94.4 H MCH 30.6 MCHC 32.4 RDW 13.2 Plt Count 154 MPV 10.4 Neut % (Auto) 72.2 Lymph % (Auto) 15.7 [place] % (Auto) 9.8 Eos % (Auto) 1.2 Baso % (Auto) 0.9 Neut # (Auto) 7.11 Lymph # (Auto) 1.5 [place] # (Auto) 1.0 H Eos # (Auto) 0.1 Baso # (Auto) 0.1 Nucleated RBC % (auto) 0 Nucleated RBCs # 0.0 Sodium 136 Potassium 4.4 Chloride 101 Carbon Dioxide 23 Anion Gap 16.4 BUN 11 Creatinine 1.0 GFR Calculation Not Reportable Glucose 103 Calculated Osmolality 282 L Calcium 9.7 Total Bilirubin 0.4 AST 18 ALT 13 Alkaline Phosphatase 64 Troponin T Baseline Troponin T 120 Minute Delta Troponin T Troponin T Hi Sens 6Hr Troponin T Hi Sens 6Hr Delta Total Protein 6.7 Albumin 4.2 Globulin 2.5 Completed Studies During Hospitalization Category Date Time Status ADMITTING OFFICER request for service Routine Exams 06/13/21 16:00 Completed XR chest 1V portable [id number] Stat Exams 06/12/21 21:09 Completed US echo complete [CV. echo complete* [id number]] Routine Ultrasound 06/13/21 09:49 Completed Laboratory Last Values WBC 9.8 10^3/uL (4.0-10.0) 06/12/21 21:31 RBC 4.32 10^6/uL (4.1-5.3) 06/12/21 21:31 Hgb 13.2 g/dL (11.7-16.6) 06/12/21 21:31 Hct 40.8 % (42.0-52.0) L 06/12/21 21:31 MCV 94.4 fl (80-94) H 06/12/21 21:31 MCH 30.6 pg (28.0-34.0) 06/12/21 21: MCHC 32.4 g/dL (30.0-36.0) 06/12/21 21:31 RDW 13.2 % (12.1-15.1) 06/12/21 21:31 Plt Count 154 10^3/cmm (130-400) 06/12/21 21:31 MPV 10.4 fL (7.4-10.4) 06/12/21 21:31 Neut % (Auto) 72.2 % 06/12/21 21: Lymph % (Auto) 15.7 % 06/12/21 21:31 [place] % (Auto) 9.8 % 06/12/21 21: Eos % (Auto) 1.2 % 06/12/21 21: Baso % (Auto) 0.9 % 06/12/21 21: Neut # (Auto) 7.11 10^3/uL (1.8-7.7) 06/12/21 21: Lymph # (Auto) 1.5 10^3/uL (0.8-4.8) 06/12/21 21: [place] # (Auto) 1.0 10^3/uL (0.2-0.9) H 06/12/21 21:31 Eos # (Auto) 0.1 10^3/uL (0.0-0.8) 06/12/21 21: Baso # (Auto) 0.1 10^3/uL (0.0-0.1) 06/12/21 21: Nucleated RBC % (auto) 0 % 06/12/21 21: Nucleated RBCs # 0.0 /100WBC 06/12/21 21: Sodium 136 mmol/L (136-145) 06/12/21 21: Potassium 4.4 mmol/L (3.5-5.1) 06/12/21 21: Chloride 101 mmol/L (98-107) 06/12/21 21: Carbon Dioxide 23 mmol/L (22-29) 06/12/21 21: Anion Gap 16.4 (5-19) 06/12/21 21:31 BUN 11 mg/dL (8-23) 06/12/21 21:31 Creatinine 1.0 mg/dL (0.7-1.2) 06/12/21 21:31 GFR Calculation Not Reportable 06/12/21 21:31 Glucose 103 mg/dL (65-115) 06/12/21 21:31 Calculated Osmolality 282 mOsm/kg (285-295) L 06/12/21 21:31 Calcium 9.7 mg/dL (8.5-10.5) 06/12/21 21:31 Total Bilirubin 0.4 mg/dL (0.15-1.2) 06/12/21 21:31 AST 18 U/L (0-40) 06/12/21 21:31 ALT 13 U/L (0-41) 06/12/21 21:31 Alkaline Phosphatase 64 IU/L (40-130) 06/12/21 21:31 Troponin T Baseline 46 ng/L (0-15) H 06/12/21 21:31 Troponin T 120 Minute 117.2 ng/L (0-15) H 06/12/21 23:32 Delta Troponin T 71.2 ABS# (0-10) H* 06/12/21 23:32 Troponin T Hi Sens 6Hr 226.2 ng/L (0-15) H 06/13/21 02:54 Troponin T Hi Sens 6Hr Delta 180.2 ng/L (0-12) H* 06/13/21 02:54 Total Protein 6.7 g/dL (6.6-8.7) 06/12/21 21:31 Albumin 4.2 g/dL (3.5-5.2) 06/12/21 21:31 Globulin 2.5 g/dL (1.3-4.6) 06/12/21 21:31 Radiology Impressions Chest X-Ray 06/12/21 21:09 IMPRESSION: No acute findings. Recent Clincial Data Last Vital Signs Temp 98.3 F 06/13/21 15:53 Pulse 106 H 06/13/21 18:40 Resp 25 H 06/13/21 18:30 BP 145/91 06/13/21 18:30 Pulse Ox 95 06/13/21 18:40 Vital Signs Temp Pulse Resp BP Pulse Ox 06/13/21 18:40 106 H 95 06/13/21 18:30 93 25 H 145/91 95 06/13/21 18:15 86 22 H 148/66 93 06/13/21 18:00 98 17 148/66 95 06/13/21 17:45 163/92 06/13/21 17:30 163/92 06/13/21 17:15 163/92 06/13/21 17:00 163/92 06/13/21 16:45 163/92 06/13/21 16:30 163/92 06/13/21 16:15 163/92 06/13/21 16:00 131 H 28 H 163/92 94 06/13/21 15:53 98.3 F 88 17 163/92 91 06/13/21 15:45 99 18 163/92 96 06/13/21 15:30 88 14 122/68 92 06/13/21 15:15 88 13 122/68 97 06/13/21 15:00 84 17 122/68 96 06/13/21 14:45 85 17 122/68 88 L 06/13/21 14:30 74 14 122/68 96 06/13/21 14:15 74 15 122/68 97 06/13/21 14:00 82 19 H 122/68 95 06/13/21 13:45 84 24 H 122/68 96 06/13/21 13:30 62 17 122/68 97 06/13/21 13:15 73 17 122/68 97 06/13/21 13:00 63 18 122/68 95 06/13/21 12:45 73 19 H 122/68 97 06/13/21 12:30 67 16 122/68 96 06/13/21 12:15 72 15 122/68 97 06/13/21 12:00 97.9 F 70 17 122/68 93 06/13/21 11:45 78 12 122/68 96 06/13/21 11:30 72 21 H 96 06/13/21 11:15 75 14 130/82 94 06/13/21 11:00 60 18 144/73 06/13/21 10:45 74 14 144/73 96 06/13/21 10:30 77 15 150/68 06/13/21 10:15 85 14 150/68 96 06/13/21 10:00 87 17 145/74 06/13/21 09:45 84 27 H 145/74 98 03/09/22 09:30 85 14 119/71 06/13/21 09:15 59 L 14 119/71 96 06/13/21 09:00 65 18 147/81 06/13/21 08:45 76 26 H 147/81 95 06/13/21 08:30 90 23 H 149/83 06/13/21 08:15 64 16 149/83 95 06/13/21 08:00 89 11 L 144/78 98 Intake & Output/Weight 06/11/21 06/12/21 06/13/21 06/14/21 06:59 06:59 06:59 06:59 Intake Total 70 / 70 Output Total 550 / 550 600 / 600 Balance -550 / -550 -530 / -530 Weight 68.946 kg Vitals Last Vital Signs Temp 98.3 F 06/13/21 15:53 Pulse 106 H 06/13/21 18:40 Resp 25 H 06/13/21 18:30 BP 145/91 06/13/21 18:30 Pulse Ox 95 06/13/21 18:40 TS Medications Medications Acetaminophen (Acetaminophen 325 Mg Tablet) 650 mg PO Q6H PRN PRN Reason: Mild/Mod Pain Or Temp >/= 101 Al Hydrox/Mg Hydrox/Simethicone (Hhtz-Gtm-Nnpwcuxze-Crow 30 Ml Udc) 30 ml PO Q15M PRN PRN Reason: INDIGESTION Alprazolam (Alprazolam 0.5 Mg Tablet) 0.25 mg PO TID PRN PRN Reason: ANXIETY Aspirin (Aspirin 81 Mg Ec Tablet) 81 mg PO DAILY [facility] Last Admin: 06/13/21 08:38 Dose: 81 mg Documented by: Atropine Sulfate (Atropine 1 Mg/Ml Sdv 1 Ml) 0.5 mg IVP PRN PRN PRN Reason: Symptomatic bradycardia Clopidogrel Bisulfate (Clopidogrel 75 Mg Tablet) 75 mg PO DAILY [facility] Diltiazem HCl (Diltiazem Er (24hr) 120 Mg Capsule) 120 mg PO QAM [facility] Last Admin: 06/13/21 05:14 Dose: Not Given Documented by: Enoxaparin Sodium (Enoxaparin 60 Mg/0.6 Ml Syringe) 60 mg SUBCUT Q12H [facility] Last Admin: 06/13/21 13:05 Dose: 60 mg Documented by: Fentanyl (Fentanyl 50 Mcg/Ml Inj 2ml) 50 mcg IVP PRN PRN PRN Reason: PAIN Dextrose/Sodium Chloride (Dextrose 5%-Sod Chloride 0.45%) 1,000 mls @ 100 mls/hr IV .Q10H [facility] Last Infusion: 06/13/21 13:41 Dose: 0 mls/hr Documented by: Sodium Chloride (Sodium Chloride 0.9%) 1,000 mls @ 50 mls/hr IV .Q20H ONE Stop: 06/14/21 09:26 Last Admin: 06/13/21 13:41 Dose: 50 mls/hr Documented by: Magnesium Hydroxide (Magnesium Hydroxide 30 Ml Udc) 30 ml PO DAILY PRN PRN Reason: CONSTIPATION Metoprolol Tartrate (Metoprolol Tartrate 25 Mg Tablet) 25 mg PO BID@0900,2100 [facility] Naloxone HCl (Naloxone 0.4 Mg/Ml Sdv) 0.1 mg IVP Q2M PRN PRN Reason: RESPIRATORY RATE < 8/MIN Ondansetron HCl (Ondansetron 2 Mg/Ml Sdv 2 Ml) 4 mg IVP Q8H PRN PRN Reason: vomiting, or N/V if npo Pantoprazole Sodium (Pantoprazole Dr 40 Mg Tablet) 40 mg PO DAILY [facility] Last Admin: 06/13/21 08:38 Dose: 40 mg Documented by: Temazepam (Temazepam 15 Mg Capsule) 15 mg PO BEDTIME PRN PRN Reason: INSOMNIA Discontinued Medications Clopidogrel Bisulfate (Clopidogrel 300 Mg Tablet) 600 mg PO ONCE ONE Stop: 06/13/21 09:52 Last Admin: 06/13/21 10:30 Dose: 600 mg Documented by: Diphenhydramine HCl (Diphenhydramine 50 Mg Capsule) 50 mg PO ONCE ONE Stop: 06/13/21 13:28 Last Admin: 06/13/21 13:42 Dose: 50 mg Documented by: Enoxaparin Sodium (Enoxaparin 80 Mg/0.8 Ml Syringe) 70 mg SUBCUT ONCE ONE Stop: 06/13/21 01:27 Last Admin: 06/13/21 01:50 Dose: 70 mg Documented by: Fentanyl (Fentanyl 50 Mcg/Ml Inj 2ml) Confirm Administered Dose 100 mcg .ROUTE .STK-MED ONE Stop: 06/13/21 16:01 Heparin Sodium (Porcine) (Heparin 5,000 Unit/Ml Inj 1 Ml) Confirm Administered Dose 5,000 unit .ROUTE .STK-MED ONE Stop: 06/13/21 16:01 Heparin Sodium (Porcine) (Heparin 5,000 Unit/Ml Inj 1 Ml) Confirm Administered Dose 5,000 unit .ROUTE .STK-MED ONE Stop: 06/13/21 17:07 Lidocaine HCl (Lidocaine 1%) Confirm Administered Dose 20 mls @ as directed .ROUTE .STK-MED ONE Stop: 06/13/21 16:01 Methylprednisolone Sodium Succinate (Methylprednisolone Sod Succ 125 Mg/2 Ml Inj) Confirm Administered Dose 125 mg .ROUTE .STK-MED ONE Stop: 06/13/21 16:39 Metoprolol Tartrate (Metoprolol Tartrate 25 Mg Tablet) 25 mg PO BEDTIME [facility] Last Admin: 06/13/21 04:40 Dose: Not Given Documented by: Metoprolol Tartrate (Metoprolol Tartrate 25 Mg Tablet) 25 mg PO ONCE ONE Stop: 06/13/21 10:01 Last Admin: 06/13/21 10:30 Dose: 25 mg Documented by: Midazolam HCl (Midazolam 1 Mg/Ml Inj 2 Ml) Confirm Administered Dose 2 mg .ROUTE .STK-MED ONE Stop: 06/13/21 16:00 Allergies diphenhydramine [From Benadryl] Allergy (Severe, Verified 06/13/21 16:43) Spasms patient states that he breaks out in hives and has severe leg spasms and involuntary leg movements metoclopramide [From Reglan] Allergy (Verified 04/30/21 14:49) mental problems mental problems nalbuphine [From Nubain] Allergy (Verified 04/30/21 14:49) muscle spasms penicillin G Allergy (Verified 04/30/21 14:49) rash Qaoasgp-KUX-EwL Reductase Inhibitor [Llefiab-Cls-Sse Reductase Inhibitor] Allergy (Verified 04/30/21 14:49) panceratitis promethazine Adverse Reaction (Mild, Verified 04/30/21 14:49) Unknown codiene Allergy (Uncoded 04/30/21 14:49) ADR-Abdominal Pain cramping Home Medications Lactobacillus acidophil,plantar-Bifido no.7 15 billion cell capsule (up4 Probiotics Adult) 1 cap PO DAILY cap 05/20/19 [History Confirmed 06/13/21] pantoprazole 40 mg tablet,delayed release (Protonix) 40 mg PO DAILY 05/20/19 [History Confirmed 06/13/21] aspirin 325 mg tablet 325 mg PO DAILY #90 tab 08/24/19 [Rx Confirmed 06/13/21] cholecalciferol (vitamin D3) 125 mcg (5,000 unit) capsule 5,000 unit PO DAILY cap 08/24/19 [History Confirmed 06/13/21] dicyclomine 10 mg capsule 20 mg PO BID PRN cap 02/23/20 [History Confirmed 06/13/21] ondansetron HCl 8 mg tablet 8 mg PO Q6H PRN tab 02/23/20 [History Confirmed 06/13/21] diltiazem HCl 120 mg capsule,24 hr,extended release 120 mg PO QAM #90 cap 08/15/20 [Rx Confirmed 06/13/21] metoprolol tartrate 25 mg tablet 25 mg PO .HS #90 tab 08/15/20 [Rx Confirmed 06/13/21] Discharge Plan Discharge Patient Disposition: Home Condition: Stable Prescriptions: No Action up4 Probiotics Adult 15 billion cell capsule 1 cap PO DAILY 0RF pantoprazole [Protonix] 40 mg tablet,delayed release (DR/EC) 40 mg PO DAILY 0RF cholecalciferol (vitamin D3) 125 mcg (5,000 unit) capsule 5,000 unit PO DAILY 0RF aspirin 325 mg tablet 325 mg PO DAILY Qty: 90 3RF ondansetron HCl 8 mg tablet 8 mg PO Q6H PRN (Reason: nausea and vomiting) 0RF dicyclomine 10 mg capsule 20 mg PO BID PRN (Reason: IBS) 0RF metoprolol tartrate 25 mg tablet 25 mg PO .HS Qty: 90 3RF diltiazem HCl 120 mg capsule,extended release 24 hr 120 mg PO QAM Qty: 90 3RF Referrals: Clarence Garcia, TOE TRIMMER-C [Primary Care Provider] - Patient Instructions: Opioid Safety Transfer Attestations Time Spent in Transfer Care: less than 30 min Quality Metrics Clinical Quality Measures [ No reported AMI, CVA or VTE this stay] Coding Level of Care Code 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
--- NOTE | 2021-06-13 22:30 | PC.NURSE ---
Pulled pts cardiac sheath per MD order. No swelling, hematoma or excess bleeding noted. Pt tollerated well. Drsg dry and intact. Will cont to monitor.
[2021-06-13] MEDS: ALPRAZolam 0.5 mg Tablet 0.25 MG PO (22:39)
--- NOTE | 2021-06-13 23:45 | PC.NURSE ---
Pt transfered to [facility] in [place] via EMS. Report was given to nurse BORIS Persaud.
[2021-06-14 07:00] VITALS: BP 110/76; PULSE 98; RESP 16; O2SAT 96
== END 2021-06-13 23:40 | disposition short-term general hospital (02) | DRG 281 ==
LOC: ER 06-13 00:35 → ICU 06-13 01:11 → CSU 06-13 11:27
PROVIDERS: Internal Medicine Cardiovascular Disease; Admitting Provider Student in an Organized Health Care Education/Training Program; Emergency Provider Emergency Medicine; PCP Nurse Practitioner; Visit Provider Internal Medicine
PROC: B213YZZ Fluoroscopy of Multiple Coronary Artery Bypass Grafts using Other Contrast (ICD-10-PCS; principal; 2021-06-13 16:30)
DX: I21.4 Non-ST elevation (NSTEMI) myocardial infarction (principal); I25.810 Atherosclerosis of coronary artery bypass graft(s) without angina pectoris; I25.10 Atherosclerotic heart disease of native coronary artery without angina pectoris; I71.4 Abdominal aortic aneurysm, without rupture; I48.0 Paroxysmal atrial fibrillation; Z87.891 Personal history of nicotine dependence; I35.0 Nonrheumatic aortic (valve) stenosis; I73.9 Peripheral vascular disease, unspecified; Z98.62 Peripheral vascular angioplasty status; I65.29 Occlusion and stenosis of unspecified carotid artery
CPT/HCPCS: 36415; 71045; 80053; 84484; 85025; 93005; 93306; 93455; 96372; 99285; C1769; C1887; C1894; J1644; J1650; J2250; J2930; J3010; J7030; J7799; Q0163; Q9967

== ENCOUNTER → 2021-07-17 13:47 | Outpatient (BNVA) | payer MEDICARE, SELFPAY | PROVIDERS: PCP Nurse Practitioner; Visit Provider Nurse Practitioner | DX: I47.2 Ventricular tachycardia (principal); I48.91 Unspecified atrial fibrillation | CPT/HCPCS: 85610 ==

== ENCOUNTER → 2021-07-26 09:47 | Outpatient (BNVA) | payer MEDICARE, SELFPAY | PROVIDERS: PCP Nurse Practitioner; Visit Provider Nurse Practitioner | DX: I48.0 Paroxysmal atrial fibrillation (principal) | CPT/HCPCS: 85610 ==

== ENCOUNTER → 2021-08-14 14:47 | Outpatient (BNVA) | payer MEDICARE, SELFPAY | PROVIDERS: PCP Nurse Practitioner; Visit Provider Nurse Practitioner | DX: I48.91 Unspecified atrial fibrillation (principal); F51.02 Adjustment insomnia | CPT/HCPCS: 85610 ==

== ENCOUNTER → 2021-08-27 14:04 | Outpatient (BNVA) | payer MEDICARE, SELFPAY | PROVIDERS: PCP Nurse Practitioner; Visit Provider Nurse Practitioner Family | DX: I25.10 Atherosclerotic heart disease of native coronary artery without angina pectoris (principal); I48.0 Paroxysmal atrial fibrillation; Z87.891 Personal history of nicotine dependence; Z79.01 Long term (current) use of anticoagulants | CPT/HCPCS: 99214 ==

== ENCOUNTER → 2021-09-05 10:15 | Outpatient (BNVA) | payer MEDICARE, SELFPAY | PROVIDERS: PCP Nurse Practitioner; Visit Provider Nurse Practitioner | DX: I48.91 Unspecified atrial fibrillation (principal); Z79.01 Long term (current) use of anticoagulants | CPT/HCPCS: 85610 ==

== ENCOUNTER → 2021-11-01 08:32 | Outpatient (BNVA) | payer MEDICARE, SELFPAY | PROVIDERS: PCP Nurse Practitioner; Visit Provider Internal Medicine Cardiovascular Disease | DX: D62 Acute posthemorrhagic anemia (principal) | CPT/HCPCS: 85025 ==

== ENCOUNTER → 2021-12-28 10:53 | Outpatient (BNVA) | payer MEDICARE, SELFPAY | PROVIDERS: PCP Nurse Practitioner; Visit Provider Nurse Practitioner Family | DX: I25.10 Atherosclerotic heart disease of native coronary artery without angina pectoris (principal); I48.0 Paroxysmal atrial fibrillation; Z87.891 Personal history of nicotine dependence; Z95.1 Presence of aortocoronary bypass graft | CPT/HCPCS: 99214 ==

== ENCOUNTER 2022-01-14 08:19 | Outpatient (CLI) | payer MEDICARE, SELFPAY ==
--- NOTE | 2022-01-14 08:45 | USCV_ITS ---
Hay Nettles Age: 86 Gender: M : 1935 Exam Date: 01/14/2022 08:50 Ordering Phys: Dominic dAler MD (Andy) ([email or web address]) Technologist: Exam Location: [facility] [place] Indication: screen HISTORY: Diameter (cm) AP x Transverse x Length Velocity (cm/s) Waveform Prox Aorta: 1.33 x 1.55 x 70.70 Mid Aorta: 1.50 x 2.06 x 62.80 Distal Aorta: 4.06 x 3.19 x Right Iliac Prox: 1.40 x 1.40 x 125.20 Left Iliac Prox: 1.52 x 1.93 x 143.40 Stent Prox Landing x x Aneurysmal Sac Max x x Lt Lat Sac Dim Rt Lat Sac Dim Stent Dist Landing x x Right Iliac Stent x x Left Iliac Stent x x Right Renal Art Left Renal Art FINDINGS: Comparison:. 12/18/20. Abdominal aortic aneurysm is noted with a maximal diameter of 4.1 cm. No change since the prior exam. Eccentric thrombus with the central lumen remaining patent. There is evidence of atherosclerotic plaque no significan stenosis in the right common iliac artery. There is evidence of atherosclerotic plaque no significan stenosis in the left common iliac artery. CONCLUSIONS Stable 4.1 cm AAA with eccentric thrombus. Dr. Loly Todd DO (Electronically Signed) Final Date: 14 January 2022 11:27 S
--- NOTE | 2022-01-14 09:30 | USCV_ITS ---
Hay Nettles Age: 86 Gender: M : 1935 Exam Date: 01/14/2022 09:10 Ordering Phys: Dominic Adler MD (Andy) ([email or web address]) Technologist: Mojgan Cesar Exam Location: [facility] [place] Indication: carotid stenosis Risk Factors: Unknown Previous Vascular Surgery: R CEA Right Brachial BP: / Left Brachial BP: / Right Left Velocity (cm/s) Spectral Plaque Velocity (cm/s) Spectral Plaque Syst/Diast Broadening Syst/Diast Broadening 136.70/24.30 Hetro Prox CCA 164.90/ 30.20 Everardo 78.30/ 12.10 Hetro Mid CCA 105.80/ 19.80 Everardo 79.50/ 14.50 Hetro Distal CCA 112.50/ 19.80 Everardo 118.30/31.60 Everardo Prox ICA 246.60/ 56.20 Everardo 127.50/35.50 Everardo Mid ICA 175.65/ 31.65 Everardo 210.50/61.20 Everardo Distal ICA 123.45/ 31.55 97.30 Hetro ECA 262.00 Everardo 1.54 ICA/CCA 1.50 Antegrade Vertebral Antegrade 22.40/ 8.50 cm/s 90.10/ 20.20 cm/s Tri Subclavian Tri 187.0 123.6 0 0 FINDINGS Comparison:. 12/18/20. Diffuse bilateral scattered calcified plaque and intimal thickening throughout the common carotid arteries and extending through the bifurcation. Greater irregular plaque throughout the left carotid as compared to the right. Progression of left ICA stenosis. Antegrade vertebral arteries. CONCLUSIONS Left ICA stenosis 50-69%. Right ICA stenosis < 50%. Extensive atherosclerotic plaque, greatest on the left. Progressed since the prior exam. Dr. Loly Todd DO (Electronically Signed) Final Date: 14 January 2022 11:32 S
== END 2022-01-14 08:20 | disposition home or self-care (01) ==
LOC: RAD 08:27
PROVIDERS: Visit Provider Thoracic Surgery (Cardiothoracic Vascular Surgery)
DX: I65.23 Occlusion and stenosis of bilateral carotid arteries (principal); I71.40 Abdominal aortic aneurysm, without rupture, unspecified; I74.19 Embolism and thrombosis of other parts of aorta
CPT/HCPCS: 93880; 93978

== ENCOUNTER → 2022-02-25 13:55 | Outpatient (BNVA) | payer MEDICARE, SELFPAY | PROVIDERS: Visit Provider Internal Medicine | DX: I25.10 Atherosclerotic heart disease of native coronary artery without angina pectoris (principal); I48.0 Paroxysmal atrial fibrillation; Z95.818 Presence of other cardiac implants and grafts; Z87.891 Personal history of nicotine dependence; Z95.1 Presence of aortocoronary bypass graft | CPT/HCPCS: 99214 ==